=== PATIENT | male | born 1965 | race Caucasian/White ===

== ENCOUNTER 2018-09-23 09:47 | Outpatient (CLI) | payer BC, SELFPAY ==
[2018-09-23 11:53] LABS: TSH (W/Ref FT4) 1.43 uIU/mL (0.358-3.74)
== END 2018-09-23 10:07 ==
PROVIDERS: PCP Student in an Organized Health Care Education/Training Program; Visit Provider Student in an Organized Health Care Education/Training Program
DX: F32.9 Major depressive disorder, single episode, unspecified (principal); R41.840 Attention and concentration deficit; R53.83 Other fatigue
CPT/HCPCS: 36415; 84443

== ENCOUNTER 2019-10-03 09:09 | Outpatient (CLI) | payer BC, SELFPAY ==
[2019-10-03 09:53] LABS: HCT 40.7 % (40.0-50.0); HGB 14.4 g/dL (13.5-17.5); Mean Corp. HGB Concentration 35.4 g/dL (32.0-36.0); Mean Corpuscular Hemoglobin 36.6 pg (27.0-33.0); Mean Corpuscular Volume 103.6 fL (80-95); Platelet Count 160 x1000/uL (130-400); RBC 3.93 m/cumm (4.50-6.00); RBC Distribution Width 12.7 % (11.8-14.1); White Blood Cell Count 5.62 k/cumm (4.4-10.8)
[2019-10-03 10:57] LABS: ALT 60 U/L (16-63); AST 184 U/L (15-37); Albumin 3.4 g/dL (3.4-5.0); Alkaline Phosphatase 130 U/L (46-116); Anion Gap 9.7 mmol/L (3-11); BUN 7 mg/dL (7-18); Bilirubin, Total 1.1 mg/dL (0.2-1.0); CO2 29.3 mmol/L (21.0-32.0); Calcium 8.7 mg/dL (8.5-10.1); Calculated LDL 55 mg/dL (<100); Chloride 103 mmol/L (98-107); Cholesterol 184 mg/dL (<200); Glucose 85 mg/dL (74-106); HDL Cholesterol 109 mg/dL (40-60); Potassium 3.8 mmol/L (3.5-5.1); Sodium 142 mmol/L (136-145); Total Protein 6.1 g/dL (6.4-8.2); Triglyceride 102 mg/dL (<150)
== END 2019-10-03 09:29 ==
PROVIDERS: PCP Student in an Organized Health Care Education/Training Program; Visit Provider Student in an Organized Health Care Education/Training Program
DX: I10 Essential (primary) hypertension (principal); I71.4 Abdominal aortic aneurysm, without rupture; Z86.2 Personal history of diseases of the blood and blood-forming organs and certain disorders involving the immune mechanism; Z86.79 Personal history of other diseases of the circulatory system; Z87.19 Personal history of other diseases of the digestive system; Z13.220 Encounter for screening for lipoid disorders
CPT/HCPCS: 36415; 80053; 80061; 85027

== ENCOUNTER 2020-01-11 18:05 | Inpatient (IN) | payer BC, SELFPAY ==
[2020-01-11] VITALS (44 sets, daily range): BP systolic 115–151; BP diastolic 65–101; PULSE 88–128; RESP 11–25; TEMP 36.3; O2SAT 85–100
[2020-01-11 19:14] LABS: Abs Immature Grans 0.04 k/cumm (0.0-0.09); Absolute Basophil Count 0.03 k/cumm (0.0-0.2); Absolute Lymphocyte Count 1.83 k/cumm (1.2-3.4); Absolute Monocyte Count 0.59 k/cumm (0.11-0.7); Basophils % 0.3; HCT 40.6 % (40.0-50.0); HGB 13.5 g/dL (13.5-17.5); Immature Grans % 0.4 %; Lymphocytes % 19.9; Mean Corp. HGB Concentration 33.3 g/dL (32.0-36.0); Mean Corpuscular Hemoglobin 30.7 pg (27.0-33.0); Mean Corpuscular Volume 92.3 fL (80-95); Mean Platelet Volume 8.7 fL (8.0-11.0); Monocytes % 6.4; Platelet Count 127 x1000/uL (130-400); RBC Distribution Width 14.3 % (11.8-14.1); White Blood Cell Count 9.19 k/cumm (4.4-10.8)
[2020-01-11] MEDS: LORazepam 2 MG/ML VIAL ×2 (19:16→22:32)
[2020-01-11] MEDS: Ondansetron 4 MG/2 ML VIAL (19:16)
[2020-01-11 19:18] LABS: Lactate 6.4 mmol/L (0.6-1.4)
[2020-01-11 19:33] LABS: ALT 68 U/L (16-63); AST 229 U/L (15-37); Albumin 3.3 g/dL (3.4-5.0); Alkaline Phosphatase 207 U/L (46-116); Anion Gap 15.4 mmol/L (3-11); BUN 6 mg/dL (7-18); Bilirubin, Total 1.2 mg/dL (0.2-1.0); CO2 24.6 mmol/L (21.0-32.0); CREATININE 0.82 mg/dL (0.70-1.30); Calcium 8.5 mg/dL (8.5-10.1); Chloride 101 mmol/L (98-107); ETHANOL BLOOD 11.1 mg/dL (<3); Glucose 134 mg/dL (74-106); Potassium 4.2 mmol/L (3.5-5.1); Sodium 141 mmol/L (136-145); Total Protein 6.8 g/dL (6.4-8.2)
[2020-01-11] MEDS: THIAMINE 100 MG in Normal Saline 100 ML 200 MG IVPB (19:38)
--- NOTE | 2020-01-11 20:20 | DI.RAD_ITS ---
EXAM: XR PORTABLE CHEST AP CLINICAL HISTORY: fever TECHNIQUE: 2D digital imaging was performed. COMPARISON: CR RIGHT SHOULDER COMPLETE from 04/23/[address] CHEST/ABD/PEL W from 01/11/2020 FINDINGS: LUNGS: There is mild elevation of the left diaphragm and mild left basilar atelectasis. No pleural a bnormality seen. HEART: Normal size. Aortic valve replacement.. MEDIASTINUM: ectatic aorta. OTHER FINDINGS: None. IMPRESSION: Mild left basilar atelectasis versus scarring. No infiltrates.. DATA REPOSITORY: RADIATION DOSE DELIVERED:
--- NOTE | 2020-01-11 20:35 | DI.VRAD_ITS ---
PROCEDURE INFORMATION: Exam: XR Chest, 1 View Exam date and time: 01/11/2020 8:19 PM Age: 54 years old Clinical indication: Fever TECHNIQUE: Imaging protocol: XR of the chest Views: 1 view. COMPARISON: CR CHEST 2 VIEWS PA,LAT 03/17/2016 12:51 PM FINDINGS: Lungs: No focal consolidation. Pleural space: No pleural effusion. No pneumothorax. Heart/Mediastinum: Heart size is normal. There is a prosthetic heart valve. Aorta is mildly tortuous. Bones/joints: Sternotomy wires are seen. IMPRESSION: No acute cardiopulmonary disease. Dictated and Authenticated by: Fabien Coffman MD. Ordering:EVELINE Grewal MD
[2020-01-11] MEDS: Lactated Ringers 1,000 ML 1000 ML IV (20:49)
[2020-01-11] MEDS: LORazepam 2 MG/ML VIAL IVP ×2 (20:50→21:32)
[2020-01-11 21:22] LABS: Magnesium 1.6 mg/dL (1.8-2.4)
[2020-01-11 21:27] LABS: Bilirubin Small (Negative); Blood Trace-lysed (Negative); Clarity Clear (Clear); Glucose Negative (Negative); Ketones Trace mg/dL (Negative); Leukocyte Esterase Negative (Negative); Nitrite Negative (Negative); Specific Gravity >= 1.030 (1.005-1.025); Urobilinogen 0.2 EU/dL (Up TO 0.2); pH 5.5 (5-8)
[2020-01-11 21:41] LABS: Epithelial Cells Few HPF (Negative); RBC Negative HPF (0-2)
[2020-01-11 21:42] LABS: Bacteria Negative HPF (Negative); C & S Indicated? Yes; Casts 3-5 Hyaline LPF (Negative); Crystals Few Amorphous HPF (Negative); Mucus Moderate (Negative); Other Cells Mod Transitional (Negative)
[2020-01-11] MEDS: Lactated Ringers 1,000 ML 200 ML IV (22:21)
[2020-01-11 22:47] LABS: Lactate 1.6 mmol/L (0.6-1.4)
[2020-01-11] MEDS: Normal Saline Flush 10 ML SYR IVP (23:03)
[2020-01-11] MEDS: Normal Saline - Diluent 50 ML VIAL IV (23:08)
[2020-01-11] MEDS: Omnipaque 350 MG/ML 100 ML BTL IJ (23:08)
[2020-01-11 23:18] LABS: Procalcitonin 0.1 ng/mL
--- NOTE | 2020-01-11 23:20 | DI.CT_ITS ---
EXAM: CT CHEST/ABD/PEL W CLINICAL HISTORY: fever/sepsis no obvious source. TECHNIQUE: Imaging Protocol: Axial computed tomography images with coronal and sagittal reformatted images were created and reviewed CONTRAST MATERIAL: Intravenous: Omnipaque 350 Contrast volume:100 ml Oral: no COMPARISON: CT CTA THORAX/ABDOMEN W CONTRAS from 06/03/2016 FINDINGS: CHEST: Thyroid: Normal. Tracheobronchial tree: Patent where visualized. Mediastinum and Tata: No dominant adenopathy or fluid collection. Pulmonary parenchyma: Mild dependent changes and respiratory motion. No consolidation or dominant me asurable mass. . Pleura: No effusion or pneumothorax. Lymph nodes: Within normal limits. Aorta: An aortic valve prosthesis is again noted. There are surgical clips and previous repair of th e ascending aorta. 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 Both t rue and false lumen are opacified. There is a small amount of fluid around the descending aorta whic h has increased when compared with the previous exam. There has also been slight interval increase i n diameter of the descending aorta, now measuring 4 cm compared with 3.8 cm on the previous exam. Th e dissection extends into the left subclavian artery and brachiocephalic trunk. This was seen on the previous exam.. Heart: Mild left atrial and left ventricular enlargement. Bones: Mild degenerative disc changes. ABDOMEN: Liver: Moderate fatty infiltration.. No measurable mass. Gallbladder and biliary tract: No radiodense calculus or dilation. Pancreas: Normal density, no abnormal calcifications or inflammatory process. Spleen: Normal. Kidneys: Normal size, contour and axis. No radiodense stones or obstructive uropathy. No masses seen. Adrenal glands: Stable tiny nodules.. Aorta: Dissection of the abdominal aorta is again noted. There has been mild interval increase in di ameter of the abdominal aorta, now measuring 2.8 cm in diameter compared with 2.4 cm on the previous exam. The dissection ends at the bifurcation. Both true and false lumen are opacified. There is no evidence of leak. The branch vessels are patent.. Lymph nodes: Within normal limits. PELVIS: Bladder: Symmetric distention, no gross wall thickening. Bowel: Exam is mildly limited by patient motion. No obstruction or bowel wall thickening. Peritoneal cavity: No ascites, collection or mesenteric inflammatory response. Bones: Within normal limits. Reproductive organs: Within normal limits. IMPRESSION: Dissection of the aorta from the arch through the bifurcation without significant change in appearanc e. Mild interval increase in aortic diameter compared with 2016. A small amount of fluid versus mur al thrombus is now seen around the descending thoracic aorta. No source for fever or sepsis is identified. There is no evidence of bowel ischemia. RADIATION DOSE DELIVERED: 1,948.6mGy.cm Total DLP DATA REPOSITORY: All CT scans at this facility are submitted to the National Radiology Data Registry (NRDR) Dose Index Registry (DIR) with the [employer] (ACR). RADIATION OPTIMIZATION: All CT scans at this facility use at least one of these dose optimization te chniques: automated exposure control; mA and/or kV adjustment per patient size (includes targeted exa ms where dose is matched to clinical indication); or iterative reconstruction.
--- NOTE | 2020-01-11 23:40 | HPE_ITS ---
Date of service: 01/11/20 Time of Service: 23:41 Assessment and Plan Assessment and plan (1) Alcohol withdrawal: Status: Acute Assessment and plan: Continue with IV fluid hydration along with scheduled doses of benzodiazepines including Librium 50 mg p.o. 4 times daily for the next 48 to 72 hours along with PRN doses of Ativan and/or Valium. Continue with high-dose thiamine and folic acid and multivitamin. Qualifiers: Complication of substance-induced condition: uncomplicated Qualified Code(s): F10.230 - Alcohol dependence with withdrawal, uncomplicated (2) Hypertension: Status: Chronic Assessment and plan: Continue his home dose of metoprolol and clonidine. I do not agree with this combination of beta-kirby and alpha kirby together but he has been taking both routinely and the alpha-kirby should not be acutely withdrawn to the risk of inducing a hypertensive crisis. Qualifiers: Hypertension type: essential hypertension Qualified Code(s): I10 - Essential (primary) hypertension (3) Lactic acidosis: Status: Acute Assessment and plan: Lactic acidosis appears to be related to his acute alcoholism and seems to be resolving with IV fluid hydration. Although initially there was some concerns from the emergency department whether he could be having some sepsis given his subjective symptoms of fever (chills and sweating but no documented temperature increase) nevertheless with a normal WBC count and a normal procalcitonin level and a lactic acid level that is declining with IV fluid hydration I think sepsis is an unlikely cause. Nevertheless blood cultures were obtained through the emergency department however I am not going to start antibiotics at this point. (4) Hypomagnesemia: Status: Acute Assessment and plan: Hypomagnesemia due to chronic alcoholism. This is not been corrected yet Blanca given both IV and p.o. magnesium. We will recheck his levels in the morning. (5) Suicidal ideation: Status: Acute Assessment and plan: Patient admits to a history of depression anxiety and admits to occasional passing thoughts of suicide but denies any planned attempts. He says he could never go through with this as he would not want a hurt his daughter by harming himself. Nevertheless I think once he gets through the acute alcohol withdrawal he would benefit from a mental health evaluation prior to discharge. (6) Alcoholism, chronic: Status: Chronic Assessment and plan: Patient states his been through multiple inpatient treatment programs for his alcoholism most recently at [facility] about a month ago which he said was was not a good experience. Prior to this he had been in inpatient treatment programs in [place]. He most recently had followed up in but says he fell off the [facility] [place] during the half-way in place orders for COVID- 19. 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 Because of the protracted vomiting is been unable to drink any alcoholic beverages for last 2 days. Prior to this he had had about 2-week history of symptoms of confusion which he calls difficulty with collaborative planning. 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 Patient said malaise and fatigue for the last few weeks has had some confusion for the last couple weeks. He now presents emergency department and acute alcohol withdrawal with his tremulous along with tachycardia and hypertension and nausea and vomiting. Work-up in the emergency department showed a normal CBC with no leukocytosis and no anemia although he has thrombocytopenia of 127,000. CMP is remarkable for an increased anion gap of 15.4 with normal electrolytes and a normal BUN of 6 and creatinine 0.82 and an elevated blood lactate of 6.4 with elevated transaminases with an AST of 229, ALT 68, alkaline phosphatase 207 and a low magnesium of 1.6. After he was given a liter of saline and a liter lactated Ringer's his blood lactate level came down to 1.6. His procalcitonin level is normal at 0.1. Urine toxicology screen is pending at this time his blood alcohol level was 11.1. Urinalysis was remarkable for an increase specific gravity of greater than 1.030 with greater than 300 mg/dL protein. Otherwise was negative for nitrites and leukocyte esterase and bacteria. Chest x-ray showed no acute cardiopulmonary disease. CT of his chest abdomen pelvis was ordered by the ER department and is pending at this time. In addition to the liter of Ringer's lactate solution and normal saline he was given thiamine 100 mg IV push as well as 2 doses of lorazepam 2 mg IV per each dose. And given a dose of Librium 50 mg p.o. Patient will now be admitted to the intensive care unit for treatment of acute alcohol withdrawal and the possibility of a early Warnicke's encephalopathy. Review of Systems Constitutional Constitutional: Reports excessive sweating, Reports fatigue and Reports frequent falls Eyes Eyes: Reports system reviewed and no additional complaints, except as documented ENT Ears, Nose, Mouth, and Throat: Reports system reviewed and no additional complaints, except as documented and Reports dizziness Cardiovascular Cardiovascular: Denies chest pain, Reports diaphoresis and Denies dyspnea Respiratory Respiratory: Denies cough, Denies dyspnea and Denies wheezing Gastrointestinal Gastrointestinal: Denies abdominal pain, Reports nausea, Reports vomiting and Denies hematemesis Genitourinary Genitourinary: Reports system reviewed and no additional complaints, except as documented Musculoskeletal Musculoskeletal: Reports system reviewed and no additional complaints, except as documented Integumentary/Breasts Skin/Breast: Reports system reviewed and no additional complaints, except as documented Neurologic Neurologic: Reports confusion, Reports dizziness and Reports frequent falls Psychiatric Psychiatric: Reports anxiety, Reports confusion, Reports irritability, Denies visual hallucinations, Denies hallucinations, Denies tactile hallucinations and Reports suicidal ideation (he admits to having had thoughts of suicide but with no real plan) Endocrine Endocrine: Reports excessive sweating and Reports fatigue Hematologic/Lymphatic Hematologic/Lymphatic: Reports system reviewed and no additional complaints, except as documented Allergic/Immunologic Allergic/Immunologic: Reports system reviewed and no additional complaints, except as documented and Denies wheezing [facility] Medical History (Updated 01/12/20 @ 01:36 by Mayur Hawk) Abdominal aortic aneurysm (Acute) Alcoholism (Acute) Hypertension (Chronic) Prolonged QT interval (Acute) Right bundle branch block (Acute) Right shoulder pain (Acute) Tick-borne disease (Acute) Surgical History (Updated 01/12/20 @ 01:28 by Mayur Hawk) H/O hand surgery (Acute) Left, Ring Finger Tendon Injury Repair S/P aortic dissection repair (Acute) with bovine aortic valve replacement Social History Smoking/Tobacco Use Status: Former Tobacco Use Smokeless tobacco user: chewing tobacco Alcohol Intake: current Alcohol Intake frequency: 3 or more drinks per day Drug use: Occasionally Substance use type: does not use and marijuana Household members: children Housing: house Number of Children: 2 Communication Needs: Corrective Lenses current occupation: Teacher Pets and animals: No What type of physical activity do you participate in: none Duration: 15-30 minutes/day Frequency: 5-6 times per week Seatbelt use: always Drive intox or ride w/intox bulk tank driver: No Working smoke detector in home: Yes Do you feel safe at home: Yes Do you feel safe in your relationship?: Yes Meds Home Medications and Allergies Home Medications Medication Instructions Recorded Confirmed Type ibuprofen 2 tab PO PRN PRN 03/17/16 01/11/20 History metoprolol tartrate 25 mg PO TID 06/03/16 01/11/20 History aspirin 81 mg tablet,delayed 81 mg PO DAILY 06/01/18 01/11/20 History release thiamine HCl (vitamin B1) 100 mg 100 mg PO DAILY 06/07/19 01/11/20 History tablet rosuvastatin 10 mg tablet 10 mg PO DAILY #90 tab 06/08/19 01/11/20 Rx clonidine HCl 0.1 mg tablet 0.1 mg PO TID #90 tab 10/22/19 01/11/20 Rx hydroxyzine HCl 50 mg tablet 50 mg PO TID PRN 11/17/19 01/11/20 History melatonin 10 mg tablet 10 mg PO HS 11/17/19 01/11/20 History magic mouth wash PO 12/01/19 01/07/20 History acetylcysteine 600 mg capsule 600 mg PO QID cap 12/08/19 01/11/20 History Allergies Allergy/AdvReac Type Severity Reaction Status Date / Time buspirone [From BuSpar] AdvReac swollen Verified 01/11/20 18:27 ankles fluoxetine AdvReac ineffective Verified 01/11/20 18:27 trazodone AdvReac nightmares Verified 01/11/20 18:27 Exam Narrative Exam Narrative: Middle-age male lying in [facility] in no acute distress he is alert and oriented person place time circumstances. Not hallucinating. HEENT is remarkable for dry mucous membranes Neck is supple nontender no JVD normal carotid pulse no bruits Lungs are clear to auscultation Heart is regular rate and rhythm with a very faint systolic murmur over the aortic outflow tract no thrill heave or gallop. Abdomen is obese soft and nontender normal active bowel sounds no palpable masses no bruits. Lower extremities he has some bruising over the right bobo and an abrasion over the right bobo without erythema. No peripheral cyanosis or edema. No calf tenderness. Neurologic exam he is alert and oriented person place time circumstance speech is clear and coherent without dysarthria. No facial asymmetry. Flextra motions intact. No focal motor deficits. No focal sensory deficits. He does have some tremulousness in his hands. No asterixis. Results Labs Result diagrams: 01/11/20 19:02 01/11/20 19:02 Labs: Laboratory Results - last 24 hr 01/11/20 01/11/20 01/11/20 19:02 19:02 19:02 WBC 9.19 RBC 4.40 L Hgb 13.5 Hct 40.6 MCV 92.3 MCH 30.7 MCHC 33.3 RDW 14.3 H Plt Count 127 L MPV 8.7 Immature Gran % 0.4 Neutrophils % 73.0 Lymphocytes % 19.9 Monocytes % 6.4 Eosinophils % 0.0 Basophils % 0.3 Absolute Neutrophils 6.70 Absolute Lymphocytes 1.83 Absolute Monocytes 0.59 Absolute Eosinophils 0.00 Absolute Basophils 0.03 Sodium 141 Potassium 4.2 Chloride 101 Carbon Dioxide 24.6 Anion Gap 15.4 H BUN 6 L Creatinine 0.82 Estimated GFR/1.73 m2 >= 60.00 Glucose 134 H Lactate 6.4 H* Calcium 8.5 Magnesium Total Bilirubin 1.2 H AST 229 H ALT 68 H Alkaline Phosphatase 207 H Total Protein 6.8 Albumin 3.3 L Procalcitonin Urine Color Urine Clarity Urine pH Ur Specific [place] Urine Protein Urine Ketones Urine Blood Urine Nitrite Urine Bilirubin Urine Urobilinogen Ur Leukocyte Esterase Urine RBC Urine WBC Ur Epithelial Cells Urine Crystals Urine Bacteria Urine Casts Urine Mucus Urine Other Ur Culture Indicated? Urine Glucose Ethyl Alcohol 11.1 01/11/20 01/11/20 01/11/20 19:50 21:17 22:30 WBC RBC Hgb Hct MCV MCH MCHC RDW Plt Count MPV Immature Gran % Neutrophils % Lymphocytes % Monocytes % Eosinophils % Basophils % Absolute Neutrophils Absolute Lymphocytes Absolute Monocytes Absolute Eosinophils Absolute Basophils Sodium Potassium Chloride Carbon Dioxide Anion Gap BUN Creatinine Estimated GFR/1.73 m2 Glucose Lactate 1.6 H Calcium Magnesium 1.6 L Total Bilirubin AST ALT Alkaline Phosphatase Total Protein Albumin Procalcitonin Urine Color Shi Urine Clarity Clear Urine pH 5.5 Ur Specific [place] >= 1.030 H Urine Protein >=300 H Urine Ketones Trace H Urine Blood Trace-lysed H Urine Nitrite Negative Urine Bilirubin Small H Urine Urobilinogen 0.2 Ur Leukocyte Esterase Negative Urine RBC Negative Urine WBC 5-10 Ur Epithelial Cells Few Urine Crystals Few amorphous Urine Bacteria Negative Urine Casts 3-5 hyaline Urine Mucus Moderate Urine Other Mod transitional Ur Culture Indicated? Yes Urine Glucose Negative Ethyl Alcohol 01/11/20 22:30 WBC RBC Hgb Hct MCV MCH MCHC RDW Plt Count MPV Immature Gran % Neutrophils % Lymphocytes % Monocytes % Eosinophils % Basophils % Absolute Neutrophils Absolute Lymphocytes Absolute Monocytes Absolute Eosinophils Absolute Basophils Sodium Potassium Chloride Carbon Dioxide Anion Gap BUN Creatinine Estimated GFR/1.73 m2 Glucose Lactate Calcium Magnesium Total Bilirubin AST ALT Alkaline Phosphatase Total Protein Albumin Procalcitonin 0.1 Urine Color Urine Clarity Urine pH Ur Specific [place] Urine Protein Urine Ketones Urine Blood Urine Nitrite Urine Bilirubin Urine Urobilinogen Ur Leukocyte Esterase Urine RBC Urine WBC Ur Epithelial Cells Urine Crystals Urine Bacteria Urine Casts Urine Mucus Urine Other Ur Culture Indicated? Urine Glucose Ethyl Alcohol Last Vital Signs Temp 36.3 C L 01/11/20 18:23 Pulse 111 H 01/11/20 19:31 Resp 18 01/11/20 20:20 BP 127/81 01/11/20 19:01 Pulse Ox 95 01/11/20 20:20 COVID-19 Screening In the past 14 days, have you traveled outside of [place] or [place]?: NO Had IN PERSON contact w/suspected or confirmed C-19 person: No
[2020-01-11] MEDS: chlordiazePOXIDE 25 MG CAP 50 MG PO (23:50)
--- NOTE | 2020-01-11 23:51 | W.ED.GENAD ---
Discharge Plan Discharge Details Chief Complaint: Fever Primary Care Provider: Jessi Goodwin ED Provider: Carmina Huff Home Meds and New Rx's Prescriptions: No Action clonidine HCl 0.1 mg tablet 0.1 mg PO TID Qty: 90 RF: 3 aspirin 81 mg tablet,delayed release (DR/EC) 81 mg PO DAILY RF: 0 thiamine HCl (vitamin B1) 100 mg tablet 100 mg PO DAILY RF: 0 rosuvastatin 10 mg tablet 10 mg PO DAILY Qty: 90 RF: 2 hydroxyzine HCl 50 mg tablet 50 mg PO TID PRNRF: 0 melatonin 10 mg tablet 10 mg PO HS RF: 0 magic mouth wash mouthwash PO RF: 0 acetylcysteine [NAC] 600 mg capsule 600 mg PO QID RF: 0 ibuprofen 200 MG capsule 2 tab PO PRN PRNRF: 0 metoprolol tartrate 25 MG tablet 25 mg PO TID RF: 0 Medical Decision Making <ELISA Aguilar - Last Filed: 01/12/20 00:45> Is a 54-year-old patient presenting the emergency room for complaints of nausea vomiting and febrile sensation for the last 2 days. Patient reports he is a chronic alcoholic and has been unable to drink for the last 2 days. Patient reports he is now in acute alcohol withdrawal. Patient feeling extremely tremulous. Patient reports the symptoms were preceded by 2 weeks of what was described as confusion. Please see HPI for specific details of his history. On initial evaluation the patient is notably hypertensive, tachycardic. Patient is maintaining oxygen saturations. Patient's initial temperature 36.3. IV access obtained. Immediate plan for fluids, Ativan, nausea medication. Plan to obtain baseline labs, initiate fever work-up as well as acutely manage alcohol withdrawal symptoms. Of note patient has a benign neurologic exam is alert and oriented x3 and is mentating without difficulty. Patient is obviously tremulous. Patient has clear breath sounds, benign abdominal exam. We will also plan to provide thiamine for the possibility of Warneke's encephalitis. Patient has no complaints of headache or dizziness at this time. Labs reveal a lactate of 6.9. Additional IV and fluids were ordered. Differential diagnosis includes sepsis, Wernicke's encephalitis, alcohol withdrawal. 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 For this reason patient will receive [address] Julio Diehl also evaluated this patient, recommend a third blood culture. Despite patient's hydration has been unable to produce urinalysis therefore straight cath to obtain urinalysis for possible source of fever. Patient has no significant leukocytosis. Patient's labs reviewed. Mild LFT elevation, mild elevation of bilirubin. This trend is been noted recently although is somewhat worse. Patient's renal function notably maintained. Patient remains significantly tremulous. Additional Ativan provided. We will plan to give 2 mg of Ativan IV every 30 minutes until patient's withdrawal symptoms begin to improve Urinalysis unremarkable for identified infection. Patient's lactate improved to 1.6 Patient's chest x-ray reveals no acute cardiopulmonary disease. Given lack of identifiable infection on urinalysis or chest x-ray will plan to obtain CT chest abdomen and pelvis at Dr. Diehl's recommendation. Patient's tremors have significantly improved, resting more comfortably at the bedside. Given patient's Ativan dosing necessary for withdrawal management will plan to page hospitalist for admission for likely ICU placement. Spoke with Dr. William who agrees with plan of care and admission to ICU. He will place orders. We will obtain Covid testing in the emergency room. <Julio Diehl MD - Last Filed: 01/12/20 00:19> Patient was seen and evaluated by me. Patient primarily cared for by ELISA Huff. Case discussed and reviewed with me extensively. Agree with note and plan as written. Patient with severe alcohol withdrawal and fever. Will require ICU admission. Lab Data Lab results reviewed: Yes I reviewed the patient's lab results. HPI <ELISA Aguilar - Last Filed: 01/12/20 00:45> General Date/Time Provider Initiated Documentation: 01/11/20 18:54. HPI Narrative: This is a 54-year-old patient presenting to the emergency room for complaints of fever for the last 2 days. Patient reports he had onset of nausea and vomiting 2 days ago. Patient reports he is an alcoholic. Drinks daily for several years. Patient reports he has been unable to drink for the last 2 days and now is experiencing withdrawal symptoms. Patient specifically reports feeling extremely tremulous. Patient reports mild nasal congestion. Denies sore throat. Denies cough, chest pain, difficulty breathing shortness of breath or wheezing. Denies abdominal pain. Denies obvious bowel changes specifically no diarrhea. Patient denies dysuria, urgency or frequency. Patient does report he had labs ordered by PCP as he was reporting some confusion over the last 2 weeks. 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 Patient denies any focal weakness, has been able to ambulate without difficulty. Patient reports fatigue and mild malaise for the last few weeks. Patient does report he was due to have labs which she has not yet had drawn. Patient denies any obvious symptoms outside of nausea and vomiting associated with fever. Denies any rashes. Denies any lower leg swelling. Related Data Home Medications Medication Instructions Recorded Confirmed ibuprofen 2 tab PO PRN PRN 03/17/16 01/11/20 metoprolol tartrate 25 mg PO TID 06/03/16 01/11/20 aspirin 81 mg tablet,delayed 81 mg PO DAILY 06/01/18 01/11/20 release thiamine HCl (vitamin B1) 100 mg 100 mg PO DAILY 06/07/19 01/11/20 tablet rosuvastatin 10 mg tablet 10 mg PO DAILY #90 tab 06/08/19 01/11/20 clonidine HCl 0.1 mg tablet 0.1 mg PO TID #90 tab 10/22/19 01/11/20 hydroxyzine HCl 50 mg tablet 50 mg PO TID PRN 11/17/19 01/11/20 melatonin 10 mg tablet 10 mg PO HS 11/17/19 01/11/20 magic mouth wash PO 12/01/19 01/07/20 acetylcysteine 600 mg capsule 600 mg PO QID cap 12/08/19 01/11/20 Previous Rx's Medication Instructions Recorded rosuvastatin 10 mg tablet 10 mg PO DAILY #90 tab 06/08/19 clonidine HCl 0.1 mg tablet 0.1 mg PO TID #90 tab 10/22/19 Allergies Allergy/AdvReac Type Severity Reaction Status Date / Time buspirone [From BuSpar] AdvReac swollen Verified 01/11/20 18:27 ankles fluoxetine AdvReac ineffective Verified 01/11/20 18:27 trazodone AdvReac nightmares Verified 01/11/20 18:27 General Stated Complaint: Fever CATALINO: 3 Review of Systems <ELISA Aguilar - Last Filed: 01/12/20 00:45> All systems reviewed & are unremarkable except as noted in HPI and below PFSH <ELISA Aguilar - Last Filed: 01/12/20 00:45> Medical History Abdominal aortic aneurysm (Acute) Alcoholism (Acute) Hypertension (Chronic) Prolonged QT interval (Acute) Right bundle branch block (Acute) Right shoulder pain (Acute) Tick-borne disease (Acute) Social History Smoking/Tobacco Use Status: Former Tobacco Use Smokeless tobacco user: chewing tobacco Alcohol Intake: current Alcohol Intake frequency: 3 or more drinks per day Drug use: Occasionally Substance use type: does not use and marijuana Household members: children Housing: house Number of Children: 2 Communication Needs: Corrective Lenses current occupation: Teacher Pets and animals: No What type of physical activity do you participate in: none Duration: 15-30 minutes/day Frequency: 5-6 times per week Seatbelt use: always Drive intox or ride w/intox 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 Alert and oriented x3. HENMT: Head nomocephalic, normal to inspection. Atraumatic. Hearing grossly normal. External ear canal no erythema or swelling. EYES: General normal appearance. Alignment normal. Eyelids normal. Conjunctiva normal. Sclera normal. PERRL. NECK: Normal visual inspection. FROM. No lymphadenopathy. Trachea midline. No Midline tenderness. CHEST: Normal insepection of the chest. RESP: Normal respiratory effort. Speaking full sentences. No cough. No wheezing. No retractions. Clear to auscaltation. Breath sound equal and present bilaterally. CARDIO: No JVD. Normal PMI. Regular Rate. Regular Rhythm. Normal peripheral pulses. GI: Normal inspection of abdomen. No distension. Soft. Nontender. Bowel sounds present in all 4 quadrants. No rebound. No gaurding. MUSCULOSKELETAL: Normal Gait. FROM of all extremities. Distal neurovascularly intact. Sensation intact distally. SKIN: Normal. Dry. No rashes. NEURO: Alert and awake. Speech clear. PSYCH: Normal affect. Cooperative. Course <ELISA Aguilar - Last Filed: 01/12/20 00:45> Vital Signs Vital signs: Vital Signs Temperature 36.3 C L 01/11/20 18:23 Pulse 101 H 01/11/20 18:23 Blood Pressure 148/101 H 01/11/20 18:23 Pulse Oximetry 95 01/11/20 18:23 Temperature 36.3 C L 01/11/20 18:23 Pulse 111 H 01/11/20 19:31 Pulse 99 H 01/11/20 20:20 Respiratory Rate 18 01/11/20 20:20 Respiratory Effort Non-Labored 01/11/20 18:30 Respiratory Pattern Normal 01/11/20 23:23 Blood Pressure 127/81 01/11/20 19:01 Blood Pressure Mean 120 01/11/20 19:31 Blood Pressure Position Sitting 01/11/20 18:23 Pulse Oximetry 95 01/11/20 20:20 Oxygen Delivery Method Room Air 01/11/20 18:23 Oxygen Flow Rate 0 01/11/20 18:23 Pain Level 8 01/11/20 18:23 Lab/Test Results Lab/Test Results: 01/11/20 22:30 Blood Blood Culture - Pending 01/11/20 21:17 Urine - Reflex from Ua Urine Culture - Pending 01/11/20 19:50 Blood Blood Culture - Pending 01/11/20 19:02 Blood Blood Culture - Pending Laboratory Tests Range/Units 01/11/20 01/11/20 01/11/20 19:02 19:02 19:02 WBC (4.4-10.8) k/cumm 9.19 RBC (4.50-6.00) m/cumm 4.40 L Hgb (13.5-17.5) g/dL 13.5 Hct (40.0-50.0) % 40.6 MCV (80-95) fL 92.3 MCH (27.0-33.0) pg 30.7 MCHC (32.0-36.0) g/dL 33.3 RDW (11.8-14.1) % 14.3 H Plt Count (130-400) x1000/uL 127 L MPV (8.0-11.0) fL 8.7 Immature Gran % % 0.4 Neutrophils % 73.0 Lymphocytes % 19.9 Monocytes % 6.4 Eosinophils % 0.0 Basophils % 0.3 Absolute Neutrophils (1.2-6.7) k/cumm 6.70 Absolute Lymphocytes (1.2-3.4) k/cumm 1.83 Absolute Monocytes (0.11-0.7) k/cumm 0.59 Absolute Eosinophils (0.0-0.7) k/cumm 0.00 Absolute Basophils (0.0-0.2) k/cumm 0.03 Sodium (136-145) mmol/L 141 Potassium (3.5-5.1) mmol/L 4.2 Chloride (98-107) mmol/L 101 Carbon Dioxide (21.0-32.0) mmol/L 24.6 Anion Gap (3-11) mmol/L 15.4 H BUN (7-18) mg/dL 6 L Creatinine (0.70-1.30) mg/dL 0.82 Estimated GFR/1.73 m2 (mL/min/1.73m2) >= 60.00 Glucose (74-106) mg/dL 134 H Lactate (0.6-1.4) mmol/L 6.4 H* Calcium (8.5-10.1) mg/dL 8.5 Magnesium (1.8-2.4) mg/dL Total Bilirubin (0.2-1.0) mg/dL 1.2 H AST (15-37) U/L 229 H ALT (16-63) U/L 68 H Alkaline Phosphatase (46-116) U/L 207 H Total Protein (6.4-8.2) g/dL 6.8 Albumin (3.4-5.0) g/dL 3.3 L Procalcitonin ng/mL Urine Color (Yellow) Urine Clarity (Clear) Urine pH (5-8) Ur Specific [place] (1.005-1.025) Urine Protein (Negative) mg/dL Urine Ketones (Negative) mg/dL Urine Blood (Negative) Urine Nitrite (Negative) Urine Bilirubin (Negative) Urine Urobilinogen (Up TO 0.2) EU/dL Ur Leukocyte Esterase (Negative) Urine RBC (0-2) HPF Urine WBC (0-5) HPF Ur Epithelial Cells (Negative) HPF Urine Crystals (Negative) HPF Urine Bacteria (Negative) HPF Urine Casts (Negative) LPF Urine Mucus (Negative) Urine Other (Negative) Ur Culture Indicated? Urine Glucose (Negative) mg/dL Ethyl Alcohol (<3) mg/dL 11.1 Range/Units 01/11/20 01/11/20 01/11/20 19:50 21:17 22:30 WBC (4.4-10.8) k/cumm RBC (4.50-6.00) m/cumm Hgb (13.5-17.5) g/dL Hct (40.0-50.0) % MCV (80-95) fL MCH (27.0-33.0) pg MCHC (32.0-36.0) g/dL RDW (11.8-14.1) % Plt Count (130-400) x1000/uL MPV (8.0-11.0) fL Immature Gran % % Neutrophils % Lymphocytes % Monocytes % Eosinophils % Basophils % Absolute Neutrophils (1.2-6.7) k/cumm Absolute Lymphocytes (1.2-3.4) k/cumm Absolute Monocytes (0.11-0.7) k/cumm Absolute Eosinophils (0.0-0.7) k/cumm Absolute Basophils (0.0-0.2) k/cumm Sodium (136-145) mmol/L Potassium (3.5-5.1) mmol/L Chloride (98-107) mmol/L Carbon Dioxide (21.0-32.0) mmol/L Anion Gap (3-11) mmol/L BUN (7-18) mg/dL Creatinine (0.70-1.30) mg/dL Estimated GFR/1.73 m2 (mL/min/1.73m2) Glucose (74-106) mg/dL Lactate (0.6-1.4) mmol/L 1.6 H Calcium (8.5-10.1) mg/dL Magnesium (1.8-2.4) mg/dL 1.6 L Total Bilirubin (0.2-1.0) mg/dL AST (15-37) U/L ALT (16-63) U/L Alkaline Phosphatase (46-116) U/L Total Protein (6.4-8.2) g/dL Albumin (3.4-5.0) g/dL Procalcitonin ng/mL Urine Color (Yellow) Shi Urine Clarity (Clear) Clear Urine pH (5-8) 5.5 Ur Specific [place] (1.005-1.025) >= 1.030 H Urine Protein (Negative) mg/dL >=300 H Urine Ketones (Negative) mg/dL Trace H Urine Blood (Negative) Trace-lysed H Urine Nitrite (Negative) Negative Urine Bilirubin (Negative) Small H Urine Urobilinogen (Up TO 0.2) EU/dL 0.2 Ur Leukocyte Esterase (Negative) Negative Urine RBC (0-2) HPF Negative Urine WBC (0-5) HPF 5-10 Ur Epithelial Cells (Negative) HPF Few Urine Crystals (Negative) HPF Few amorphous Urine Bacteria (Negative) HPF Negative Urine Casts (Negative) LPF 3-5 hyaline Urine Mucus (Negative) Moderate Urine Other (Negative) Mod transitional Ur Culture Indicated? Yes Urine Glucose (Negative) mg/dL Negative Ethyl Alcohol (<3) mg/dL Range/Units 01/11/20 22:30 WBC (4.4-10.8) k/cumm RBC (4.50-6.00) m/cumm Hgb (13.5-17.5) g/dL Hct (40.0-50.0) % MCV (80-95) fL MCH (27.0-33.0) pg MCHC (32.0-36.0) g/dL RDW (11.8-14.1) % Plt Count (130-400) x1000/uL MPV (8.0-11.0) fL Immature Gran % % Neutrophils % Lymphocytes % Monocytes % Eosinophils % Basophils % Absolute Neutrophils (1.2-6.7) k/cumm Absolute Lymphocytes (1.2-3.4) k/cumm Absolute Monocytes (0.11-0.7) k/cumm Absolute Eosinophils (0.0-0.7) k/cumm Absolute Basophils (0.0-0.2) k/cumm Sodium (136-145) mmol/L Potassium (3.5-5.1) mmol/L Chloride (98-107) mmol/L Carbon Dioxide (21.0-32.0) mmol/L Anion Gap (3-11) mmol/L BUN (7-18) mg/dL Creatinine (0.70-1.30) mg/dL Estimated GFR/1.73 m2 (mL/min/1.73m2) Glucose (74-106) mg/dL Lactate (0.6-1.4) mmol/L Calcium (8.5-10.1) mg/dL Magnesium (1.8-2.4) mg/dL Total Bilirubin (0.2-1.0) mg/dL AST (15-37) U/L ALT (16-63) U/L Alkaline Phosphatase (46-116) U/L Total Protein (6.4-8.2) g/dL Albumin (3.4-5.0) g/dL Procalcitonin ng/mL 0.1 Urine Color (Yellow) Urine Clarity (Clear) Urine pH (5-8) Ur Specific [place] (1.005-1.025) Urine Protein (Negative) mg/dL Urine Ketones (Negative) mg/dL Urine Blood (Negative) Urine Nitrite (Negative) Urine Bilirubin (Negative) Urine Urobilinogen (Up TO 0.2) EU/dL Ur Leukocyte Esterase (Negative) Urine RBC (0-2) HPF Urine WBC (0-5) HPF Ur Epithelial Cells (Negative) HPF Urine Crystals (Negative) HPF Urine Bacteria (Negative) HPF Urine Casts (Negative) LPF Urine Mucus (Negative) Urine Other (Negative) Ur Culture Indicated? Urine Glucose (Negative) mg/dL Ethyl Alcohol (<3) mg/dL Critical Care Time <ELISA Aguilar - Last Filed: 01/12/20 00:45> Critical Care Time Critical Care Time: Yes Total Critical Care Time: 40 Attestation: Greater than 35 minutes was spent managing patient's immediate risk of decompensation. This includes evaluating patient at the bedside, ordering medication, managing diagnostics and reviewing results.
[2020-01-12] VITALS (99 sets, daily range): BP systolic 97–147; BP diastolic 51–93; PULSE 79–109; RESP 11–24; TEMP 36.3–36.7; O2SAT 87–98
[2020-01-12 00:27] LABS: *AMPHETAMINES SCREEN URINE Negative (Negative); *BARBITURATES SCREEN URINE Negative (Negative); *BENZODIAZEPINES SCREEN URINE Negative (Negative); Cannabinoids THC POSITIVE (Negative); Cocaine Screen,Urine Negative (Negative); METHADONE URINE SCREEN Negative (Negative); OPIATES URINE SCREEN Negative (Negative)
[2020-01-12 00:58] LABS: Tricyclic Antidepressants Negative (Negative)
[2020-01-12 01:15] LABS: Lipase 101 U/L (73-393)
--- NOTE | 2020-01-12 01:24 | DI.VRAD_ITS ---
Addendum created by Fabien Coffman MD on 01/12/2020 1:27:58 AM EDT THIS REPORT CONTAINS FINDINGS THAT MAY BE CRITICAL TO PATIENT CARE. The findings were verbally communicated via telephone conference with ALAN AGUAYO at 1:27 AM EDT on 01/12/2020. The findings were acknowledged and understood. Initial report created on 01/12/2020 1:24:09 AM EDT PROCEDURE INFORMATION: Exam: CT Chest With Contrast Exam date and time: 01/11/2020 11:19 PM Age: 54 years old Clinical indication: Other: Fever/sepsis TECHNIQUE: Imaging protocol: Computed tomography of the chest with intravenous contrast. Radiation optimization: All CT scans at this facility use at least one of these dose optimization techniques: automated exposure control; mA and/or kV adjustment per patient size (includes targeted exams where dose is matched to clinical indication); or iterative reconstruction. Contrast material: [id number]; Contrast volume: 100 ml; Contrast route: IV LT HAND 20G; COMPARISON: No relevant prior studies available. FINDINGS: Lungs: No focal consolidation. Mild bibasilar atelectasis. Pleural space: No pleural effusion. No pneumothorax. Heart: The heart is enlarged. There is a prosthetic aortic valve. No pericardial effusion. Aorta: Mild dilation of the aortic root is seen. There is a type A aortic dissection arising from the aortic arch. Dissection flap extends into the left subclavian artery and brachiocephalic trunk. The appearance is similar to the prior study. The true and false lumen are opacified. There are postsurgical changes in the ascending aorta. There is mild diffuse ectasia of the thoracic aorta. Proximal descending aorta measures approximately 4.0 cm on the current study and 3.8 cm on the prior study. A tiny amount of fluid is seen adjacent to the proximal descending aorta. A tiny amount of fluid is seen adjacent to the proximal descending aorta. Great vessels off aortic arch: There is aneurysmal dilation of the left subclavian vein origin which is slightly larger measuring 2.3 cm on the current study and 2.1 cm on the prior study. Lymph nodes: No pathologically enlarged lymph nodes. Bones/joints: Unremarkable. No acute fracture. Soft tissues: Unremarkable. Other findings: There is respiratory motion artifact. IMPRESSION: 1. Stable appearance of type A aortic dissection. There is mild diffuse increase in size of the thoracic aorta compared with prior study. A tiny amount fluid is seen adjacent to the proximal descending aorta of unclear etiology. Superimposed infection or leakage is not excluded. 2. 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 3. No other acute abnormality identified. 4. Additional incidental/non-emergent findings, as above. PROCEDURE INFORMATION: Exam: CT Abdomen And Pelvis With Contrast Exam date and time: 01/11/2020 11:19 PM Age: 54 years old Clinical indication: Other: Fever/sepsis TECHNIQUE: Imaging protocol: Computed tomography of the abdomen and pelvis with intravenous contrast. Radiation optimization: All CT scans at this facility use at least one of these dose optimization techniques: automated exposure control; mA and/or kV adjustment per patient size (includes targeted exams where dose is matched to clinical indication); or iterative reconstruction. Contrast material: [id number]; Contrast volume: 100 ml; Contrast route: IV LT HAND 20G; COMPARISON: No relevant prior studies available. FINDINGS: Liver: There is fatty infiltration of the liver. Gallbladder and bile ducts: Unremarkable. No biliary dilation. The gallbladder is distended. Pancreas: Unremarkable. Spleen: Unremarkable. Adrenals: Stable subcentimeter bilateral adrenal nodules. Kidneys and ureters: Unremarkable. No hydronephrosis. Stomach and bowel: No bowel obstruction. There are a few scattered colonic diverticuli. No evidence of acute diverticulitis. Appendix: No evidence of appendicitis. Intraperitoneal space: No free air. No significant fluid collection. Vasculature: There is an aortic dissection extending down to the bifurcation, similar to prior. There is mild diffuse increase in size of the abdominal aorta without a focal aneurysm. Infrarenal aorta measures up to 2.8 cm on the current study and 2.4 cm on the prior study same location. The true and false lumen are opacified. Lymph nodes: No pathologically enlarged lymph nodes. Bladder: Unremarkable as visualized. Reproductive: Unremarkable as visualized. Bones/joints: No acute fracture. No destructive bone lesion. Soft tissues: Unremarkable. Other findings: There is motion artifact. IMPRESSION: 1. Stable appearance of abdominal aortic dissection. There is mild diffuse increase in size of the aorta compared to prior. 2. No other acute abnormality identified. 3. Additional incidental/non-emergent findings, as above. Dictated and Authenticated by: Fabien Coffman MD. Ordering:JUAN Kim MD
[2020-01-12] MEDS: Enoxaparin 60 MG/0.6 ML SYR SC (01:56)
[2020-01-12] MEDS: Enoxaparin 40 MG/0.4 ML SYR SC (01:57)
[2020-01-12] MEDS: MAGNESIUM SULFATE 4 GM/100 ML BAG 50 GM (02:07)
[2020-01-12] MEDS: DEXTROSE 5%-0.45% SALINE 1,000 ML 150 ML IV ×2 (04:54→13:06)
[2020-01-12] MEDS: LORazepam 1 MG TAB PO/SL ×2 (04:54→20:59)
[2020-01-12] MEDS: THIAMINE 500 MG in Normal Saline 100 ML 200 MG IVPB ×3 (06:24→22:53)
[2020-01-12] MEDS: chlordiazePOXIDE 25 MG CAP 50 MG PO ×3 (07:41→15:38)
[2020-01-12] MEDS: Magnesium Oxide 400 MG TAB PO ×2 (07:41→20:00)
[2020-01-12] MEDS: Metoprolol 25 MG TAB PO ×3 (07:41→20:00)
[2020-01-12] MEDS: Multivitamin TAB 1 TAB PO (07:42)
[2020-01-12] MEDS: Rosuvastatin 10 MG TAB PO (07:42)
[2020-01-12] MEDS: Normal Saline Flush 10 ML SYR IVP (07:42)
[2020-01-12] MEDS: cloNIDine 0.1 MG TAB PO ×3 (07:42→20:00)
[2020-01-12] MEDS: Folic Acid 1 MG TAB PO (07:42)
--- NOTE | 2020-01-12 08:03 | PDOC.CMIN ---
- If Service Date Differs Date of service: 01/12/20 Time of Service: 08:03 Care Management Initial Assess REASON FOR HOSPITALIZATION:: Alcohol withdrawal PAST MEDICAL HISTORY/PAST SURGICAL HISTORY:: Medical History (Updated 01/12/20 @ 01:36 by Mayur Hawk). Abdominal aortic aneurysm (Acute). Alcoholism (Acute). Hypertension (Chronic). Prolonged QT interval (Acute). Right bundle branch block (Acute). Right shoulder pain (Acute). Tick-borne disease (Acute). Surgical History (Updated 01/12/20 @ 01:28 by Mayur Hawk). H/O hand surgery (Acute). Left, Ring Finger Tendon Injury Repair. S/P aortic dissection repair (Acute). with bovine aortic valve replacement PREVIOUS FUNCTIONAL STATUS/SOCIAL/FAMILY SUPPORTS:: Gilmer lives in [place], [place] and is employed as a accounts receivable specialist. He is independent at baseline. CURRENT FUNCTIONAL STATUS:: CM unable to meet with Gilmer as he is isolated as a PUI. ADVANCE DIRECTIVES:: None on file Has patient been provided with information about the portal?: No Did the patient sign up for the portal?: No CODE STATUS:: Full Code INSURANCE COVERAGE / FINANCIAL ISSUES:: [employer] [facility] PRIMARY CARE PHYSICIAN:: Jessi Goodwin POTENTIAL DISCHARGE NEEDS:: Substance abuse treatment, follow up with PCP and idscharge plan PATIENT/FAMILY EDUCATION NEEDS:: Discharge plan, limitations, follow up plan, Ask Me Three TRANSPORTATION:: private vehicle with friends/family PLAN:: Gilmer will likely be discharged home with no new services.He would likely benefit from substance abuse treatment. Gilmer will follow up with his PCP and discharge plan of care. CM will continue to support patient, family and discharge planning needs.
[2020-01-12 08:06] LABS: HCT 35.6 % (40.0-50.0); HGB 11.5 g/dL (13.5-17.5); Mean Corp. HGB Concentration 32.3 g/dL (32.0-36.0); Mean Corpuscular Hemoglobin 30.3 pg (27.0-33.0); Mean Corpuscular Volume 93.9 fL (80-95); Mean Platelet Volume 8.7 fL (8.0-11.0); RBC 3.79 m/cumm (4.50-6.00); RBC Distribution Width 14.2 % (11.8-14.1); White Blood Cell Count 4.51 k/cumm (4.4-10.8)
[2020-01-12 08:12] LABS: ALT 54 U/L (16-63); AST 152 U/L (15-37); Albumin 2.6 g/dL (3.4-5.0); Alkaline Phosphatase 162 U/L (46-116); Anion Gap 3.4 mmol/L (3-11); BUN 5 mg/dL (7-18); Bilirubin, Direct 0.42 mg/dL (0.00-0.20); Bilirubin, Total 1.1 mg/dL (0.2-1.0); CO2 33.6 mmol/L (21.0-32.0); CREATININE 0.82 mg/dL (0.70-1.30); Calcium 7.6 mg/dL (8.5-10.1); Chloride 103 mmol/L (98-107); Glucose 110 mg/dL (74-106); Magnesium 2.4 mg/dL (1.8-2.4); PHOSPHORUS 1.8 mg/dL (2.6-4.7); Potassium 3.3 mmol/L (3.5-5.1); Sodium 140 mmol/L (136-145); Total Protein 5.3 g/dL (6.4-8.2)
[2020-01-12 08:20] LABS: Platelet Count 58 x1000/uL (130-400)
[2020-01-12] MEDS: LORazepam 2 MG/ML VIAL IVP ×5 (08:36→18:12)
[2020-01-12] MEDS: Potassium Chloride 20 MEQ TABCR 40 MEQ PO (10:59)
--- NOTE | 2020-01-12 11:33 | W.NUTRFU ---
Date of service: 01/12/20 Time of Service: 11:34 Nutritional Follow up NOTE: 54 year old male admitted to ICU after several days of N/V, fever with alcohol withdrawl,hypomagnesemia. Meds include thiamin, folic acid MVI. Following regular meal plan. Nursing reports he is eating. BMI indicates mild obesity. Not at risk for nutritional decline at this time. Time Spent in Nutritional Counseling and Treatment: 0 time
--- NOTE | 2020-01-12 11:55 | PHA.REVIEW ---
Pharmacy Admission Review - Admission Clinical Review (Last Reviewed 01/11/20 @ 23:57 by ELISA Aguilar) Suicidal ideation (Acute) Hypomagnesemia (Acute) Lactic acidosis (Acute) Alcohol withdrawal (Acute) buspirone [From BuSpar] Adverse Reaction (Verified 01/11/20 18:27) swollen ankles fluoxetine Adverse Reaction (Verified 01/11/20 18:27) ineffective trazodone Adverse Reaction (Verified 01/11/20 18:27) nightmares Height 5 ft 10 in Weight 94.5 kg - Renal Dosing Renal Dosing: BUN 5 mg/dL (7-18) L 01/12/20 07:45 Creatinine 0.82 mg/dL (0.70-1.30) 01/12/20 07:45 Medications needing adjustments: Reviewed (Crcl ~107 mL/min current meds okay) - Anticoagulation Anticoagulation: Hgb 11.5 g/dL (13.5-17.5) L 01/12/20 07:45 Hct 35.6 % (40.0-50.0) L 01/12/20 07:45 Plt Count 58 x1000/uL (130-400) L D 01/12/20 07:45 Creatinine 0.82 mg/dL (0.70-1.30) 01/12/20 07:45 DVT Prohphylaxis: Reviewed (enoxaparin discontinued; plts 58 this morning) Therapeutic Anticoagulation: N/A - Opiate Usage Evaluate Pain Scale/Pains Meds: N/A - Relevant Labs Sodium 140 mmol/L (136-145) 01/12/20 07:45 Potassium 3.3 mmol/L (3.5-5.1) L 01/12/20 07:45 Chloride 103 mmol/L (98-107) 01/12/20 07:45 Phosphorus 1.8 mg/dL (2.6-4.7) L 01/12/20 07:45 Magnesium 2.4 mg/dL (1.8-2.4) 01/12/20 07:45 Electrolytes, C-Reactive P, ESR: Reviewed (potassium replacement ordered) - DM Control DM Control: Glucose 110 mg/dL (74-106) H 01/12/20 07:45 Insulin Dosing: N/A - Heart Failure/TX EF%, RACHNA's, B-Blockers, Diuretics: Reviewed (metoprolol) - BP Control BP Control: Blood Pressure 115/67 Blood Pressure 128/82 Blood Pressure 125/86 Blood Pressure 136/89 Blood Pressure 129/87 Blood Pressure 104/71 Blood Pressure 128/85 If elevated: N/A - Qtc Review If Elevated: Reviewed (QTc 544 one time dose ondansetron given in ED and has hydroxyzine on home med list) - IV to PO Switch IV Medications: N/A - Home Meds Home Med List reviewed: Reviewed (Clonidine may enahce the AV-blocking effect of metoprolol; metoprolol may enhance rebound antihypertensive effect of clonidine if clonidine is abruptly withdrawn.) Relevent Home Meds Not ordered & why?: acetylcysteine, aspirin, hydroxyzine (PRN/QTc prolonged), ibuprofen (PRN), magic mouth wash - Current meds Current Medication Order Review: Intervened (discontinued DI meds, DM orders, and a duplicate order) - Comments Comments/Follow Ups: watch K+, phos, plts, and for the addition of any QT prolonging meds
[2020-01-12 15:40] LABS: COVID-19 RT-PCR UVMMC Result Negative (Negative)
--- NOTE | 2020-01-12 17:54 | W.PM.PROGNOT ---
Date of Service Date of service: 01/12/20 Time of Service: 17:54 Assessment and Plan Assessment and plan (1) Alcohol withdrawal: Status: Acute Assessment and plan: Continue IVF, increase scheduled librium, continue prn ativan per CIWA. Agree with high dose thiamine. Continue MVI. Monitor and replete lytes. Continues to require ICU. Qualifiers: Complication of substance-induced condition: uncomplicated Qualified Code(s): F10.230 - Alcohol dependence with withdrawal, uncomplicated (2) Hypertension: Status: Chronic Assessment and plan: Continue metoprolol and clonidine. Last BP is 112/79. Qualifiers: Hypertension type: essential hypertension Qualified Code(s): I10 - Essential (primary) hypertension (3) Lactic acidosis: Status: Acute Assessment and plan: No evidence of acute bacterial process. Agree that this is likely related to alcoholic liver disease. Continue IVF as dehydration component is a possibility. Recheck in am. (4) Hypomagnesemia: Status: Acute Assessment and plan: Repleted. Recheck in am. (5) Suicidal ideation: Status: Acute Assessment and plan: history of depression anxiety and suicidal ideation without plan. Some of this could be substance-induced mood disorder, but the patient should absolutely be evaluated by mental health prior to discharge. (6) Alcoholism, chronic: Status: Chronic Assessment and plan: The patient has made arrangements for an inpatient substance abuse rehab facility in [facility] upon discharge from our facility. (7) Thrombocytopenia: Status: Chronic Assessment and plan: Could be related to lovenox/HIT but also likely due to EtOH. HIT panel ordered. Lovenox d/c'ed. I ordered TEDs/SCDs for DVT ppx. Continue to monitor. (8) DVT prophylaxis: Status: Acute Assessment and plan: As above. Lovenox d/c'ed. TEDs/SCDs ordered. (9) Discharge planning issues: Status: Acute Assessment and plan: Full code Keep in ICU Subjective Subjective Interval history since last seen: CIWA scores today have been 11-13. The patient is anxious, tremulous, but mentating and not hallucinating. He was able to make his own arrangements to go to a substance abuse rehab facility in [facility] once he is done with withdrawal here. Had a headache, but denies dizziness, chest pain, shortness of breath. Good appetite. Exam Narrative Exam Narrative: General: Very pleasant middle-aged male, A&Ox3, but sometimes slow to respond to questions, and the answers do become tangential, requiring refocusing, tremulous, mildly anxious HEENT: EOMI, MMM Heart: RRR, no m/r/g Lungs: CTAB Abdomen: soft, nontender, nondistended Extremities: no e/c/c BLE's Objective Objective Clinical Data: Abnormal lab results 01/11/20 01/11/20 01/11/20 Range/Units 19:02 19:02 19:02 RBC 4.40 L (4.50-6.00) m/cumm Hgb (13.5-17.5) g/dL Hct (40.0-50.0) % RDW 14.3 H (11.8-14.1) % Plt Count 127 L (130-400) x1000/uL Potassium (3.5-5.1) mmol/L Carbon Dioxide (21.0-32.0) mmol/L Anion Gap 15.4 H (3-11) mmol/L BUN 6 L (7-18) mg/dL Glucose 134 H (74-106) mg/dL Lactate 6.4 H* (0.6-1.4) mmol/L Calcium (8.5-10.1) mg/dL Phosphorus (2.6-4.7) mg/dL Magnesium (1.8-2.4) mg/dL Total Bilirubin 1.2 H (0.2-1.0) mg/dL Conjugated Bilirubin (0.00-0.20) mg/dL AST 229 H (15-37) U/L ALT 68 H (16-63) U/L Alkaline Phosphatase 207 H (46-116) U/L Total Protein (6.4-8.2) g/dL Albumin 3.3 L (3.4-5.0) g/dL Ur Specific [place] (1.005-1.025) Urine Protein (Negative) mg/dL Urine Ketones (Negative) mg/dL Urine Blood (Negative) Urine Bilirubin (Negative) Ur THC Screen (Negative) 01/11/20 01/11/20 01/11/20 Range/Units 19:50 21:17 21:17 RBC (4.50-6.00) m/cumm Hgb (13.5-17.5) g/dL Hct (40.0-50.0) % RDW (11.8-14.1) % Plt Count (130-400) x1000/uL Potassium (3.5-5.1) mmol/L Carbon Dioxide (21.0-32.0) mmol/L Anion Gap (3-11) mmol/L BUN (7-18) mg/dL Glucose (74-106) mg/dL Lactate (0.6-1.4) mmol/L Calcium (8.5-10.1) mg/dL Phosphorus (2.6-4.7) mg/dL Magnesium 1.6 L (1.8-2.4) mg/dL Total Bilirubin (0.2-1.0) mg/dL Conjugated Bilirubin (0.00-0.20) mg/dL AST (15-37) U/L ALT (16-63) U/L Alkaline Phosphatase (46-116) U/L Total Protein (6.4-8.2) g/dL Albumin (3.4-5.0) g/dL Ur Specific [place] >= 1.030 H (1.005-1.025) Urine Protein >=300 H (Negative) mg/dL Urine Ketones Trace H (Negative) mg/dL Urine Blood Trace-lysed H (Negative) Urine Bilirubin Small H (Negative) Ur THC Screen Positive A (Negative) 01/11/20 01/12/20 01/12/20 Range/Units 22:30 07:45 07:45 RBC 3.79 L (4.50-6.00) m/cumm Hgb 11.5 L (13.5-17.5) g/dL Hct 35.6 L (40.0-50.0) % RDW 14.2 H (11.8-14.1) % Plt Count 58 L D (130-400) x1000/uL Potassium 3.3 L (3.5-5.1) mmol/L Carbon Dioxide 33.6 H (21.0-32.0) mmol/L Anion Gap (3-11) mmol/L BUN 5 L (7-18) mg/dL Glucose 110 H (74-106) mg/dL Lactate 1.6 H (0.6-1.4) mmol/L Calcium 7.6 L (8.5-10.1) mg/dL Phosphorus 1.8 L (2.6-4.7) mg/dL Magnesium (1.8-2.4) mg/dL Total Bilirubin 1.1 H (0.2-1.0) mg/dL Conjugated Bilirubin 0.42 H (0.00-0.20) mg/dL AST 152 H (15-37) U/L ALT (16-63) U/L Alkaline Phosphatase 162 H (46-116) U/L Total Protein 5.3 L (6.4-8.2) g/dL Albumin 2.6 L (3.4-5.0) g/dL Ur Specific [place] (1.005-1.025) Urine Protein (Negative) mg/dL Urine Ketones (Negative) mg/dL Urine Blood (Negative) Urine Bilirubin (Negative) Ur THC Screen (Negative) Vital Signs Temperature 36.3 C L 01/12/20 16:03 Temperature Source Temporal Artery Scan 01/12/20 16:03 Pulse 88 01/12/20 16:01 Pulse 86 01/12/20 16:01 Respiratory Rate 11 L 01/12/20 16:01 Respiratory Effort Non-Labored 01/12/20 11:34 Respiratory Depth Normal 01/12/20 11:34 Respiratory Pattern Normal 01/12/20 11:34 Blood Pressure 112/79 01/12/20 16:01 Blood Pressure Mean 86 01/12/20 16:01 Blood Pressure Position Supine 01/12/20 11:34 Pulse Oximetry 97 01/12/20 15:01 Oxygen Delivery Method Room Air 01/12/20 13:29 Oxygen Flow Rate 0 01/12/20 13:29 Pain Level 0 01/12/20 11:34 Intake & Output 01/11/20 01/12/20 01/12/20 23:59 11:59 23:59 Intake Total 101 / 101 2495 / 2795 300 / 2795 Output Total 100 / 525 425 / 525 Balance 101 / 101 2395 / 2270 -125 / 2270 Weight 90.718 kg 94.5 kg Intake: IV 101 / 101 2105 / 2105 Oral 390 / 690 300 / 690 Output: Urine 100 / 475 375 / 475 Stool 50 / 50 Other: Urine Color Light Shi Dark Shi Urine Appearance Clear Clear Urine Odor Normal Comment Mixed with liquid stool. Stool Occult Blood Negative Stool Size Small Stool Characteristics Soft Liquid Voiding Methods Bedside Commode Laboratory Results WBC 4.51 k/cumm (4.4-10.8) D 01/12/20 07:45 RBC 3.79 m/cumm (4.50-6.00) L 01/12/20 07:45 Hgb 11.5 g/dL (13.5-17.5) L 01/12/20 07:45 Hct 35.6 % (40.0-50.0) L 01/12/20 07:45 MCV 93.9 fL (80-95) 01/12/20 07:45 MCH 30.3 pg (27.0-33.0) 01/12/20 07:45 MCHC 32.3 g/dL (32.0-36.0) 01/12/20 07:45 RDW 14.2 % (11.8-14.1) H 01/12/20 07:45 Plt Count 58 x1000/uL (130-400) L D 01/12/20 07:45 MPV 8.7 fL (8.0-11.0) 01/12/20 07:45 Immature Gran % 0.4 % 01/11/20 19:02 Neutrophils % 73.0 01/11/20 19:02 Lymphocytes % 19.9 01/11/20 19:02 Monocytes % 6.4 01/11/20 19:02 Eosinophils % 0.0 01/11/20 19:02 Basophils % 0.3 01/11/20 19:02 Absolute Neutrophils 6.70 k/cumm (1.2-6.7) 01/11/20 19:02 Absolute Lymphocytes 1.83 k/cumm (1.2-3.4) 01/11/20 19:02 Absolute Monocytes 0.59 k/cumm (0.11-0.7) 01/11/20 19:02 Absolute Eosinophils 0.00 k/cumm (0.0-0.7) 01/11/20 19:02 Absolute Basophils 0.03 k/cumm (0.0-0.2) 01/11/20 19:02 Sodium 140 mmol/L (136-145) 01/12/20 07:45 Potassium 3.3 mmol/L (3.5-5.1) L 01/12/20 07:45 Chloride 103 mmol/L (98-107) 01/12/20 07:45 Carbon Dioxide 33.6 mmol/L (21.0-32.0) H 01/12/20 07:45 Anion Gap 3.4 mmol/L (3-11) 01/12/20 07:45 BUN 5 mg/dL (7-18) L 01/12/20 07:45 Creatinine 0.82 mg/dL (0.70-1.30) 01/12/20 07:45 Estimated GFR/1.73 m2 >= 60.00 (mL/min/1.73m2) 01/12/20 07:45 Glucose 110 mg/dL (74-106) H 01/12/20 07:45 Lactate 1.6 mmol/L (0.6-1.4) H 01/11/20 22:30 Calcium 7.6 mg/dL (8.5-10.1) L 01/12/20 07:45 Phosphorus 1.8 mg/dL (2.6-4.7) L 01/12/20 07:45 Magnesium 2.4 mg/dL (1.8-2.4) 01/12/20 07:45 Total Bilirubin 1.1 mg/dL (0.2-1.0) H 01/12/20 07:45 Conjugated Bilirubin 0.42 mg/dL (0.00-0.20) H 01/12/20 07:45 AST 152 U/L (15-37) H 01/12/20 07:45 ALT 54 U/L (16-63) 01/12/20 07:45 Alkaline Phosphatase 162 U/L (46-116) H 01/12/20 07:45 Total Protein 5.3 g/dL (6.4-8.2) L 01/12/20 07:45 Albumin 2.6 g/dL (3.4-5.0) L 01/12/20 07:45 Lipase 101 U/L (73-393) 01/12/20 00:00 Procalcitonin 0.1 ng/mL 01/11/20 22:30 Urine Color Shi (Yellow) 01/11/20 21:17 Urine Clarity Clear (Clear) 01/11/20 21:17 Urine pH 5.5 (5-8) 01/11/20 21:17 Ur Specific [place] >= 1.030 (1.005-1.025) H 01/11/20 21:17 Urine Protein >=300 mg/dL (Negative) H 01/11/20 21:17 Urine Ketones Trace mg/dL (Negative) H 01/11/20 21:17 Urine Blood Trace-lysed (Negative) H 01/11/20 21:17 Urine Nitrite Negative (Negative) 01/11/20 21:17 Urine Bilirubin Small (Negative) H 01/11/20 21:17 Urine Urobilinogen 0.2 EU/dL (Up TO 0.2) 01/11/20 21:17 Ur Leukocyte Esterase Negative (Negative) 01/11/20 21:17 Urine RBC Negative HPF (0-2) 01/11/20 21:17 Urine WBC 5-10 HPF (0-5) 01/11/20 21:17 Ur Epithelial Cells Few HPF (Negative) 01/11/20 21:17 Urine Crystals Few amorphous HPF (Negative) 01/11/20 21:17 Urine Bacteria Negative HPF (Negative) 01/11/20 21:17 Urine Casts 3-5 hyaline LPF (Negative) 01/11/20 21:17 Urine Mucus Moderate (Negative) 01/11/20 21:17 Urine Other Mod transitional (Negative) 01/11/20 21:17 Ur Culture Indicated? Yes 01/11/20 21:17 Urine Glucose Negative mg/dL (Negative) 01/11/20 21:17 Urine Opiates Screen Negative (Negative) 01/11/20 21:17 Urine Methadone Screen Negative (Negative) 01/11/20 21:17 Ur Barbiturates Screen Negative (Negative) 01/11/20 21:17 Ur Tricyclics Screen Negative (Negative) 01/11/20 21:17 Ur Amphetamines Screen Negative (Negative) 01/11/20 21:17 U Benzodiazepines Scrn Negative (Negative) 01/11/20 21:17 Urine Cocaine Screen Negative (Negative) 01/11/20 21:17 Ur THC Screen Positive (Negative) A 01/11/20 21:17 Ethyl Alcohol 11.1 mg/dL (<3) 01/11/20 19:02 COVID-19 PCR Negative (Negative) 01/11/20 23:35 Nasopharyn COVID-19 PCR Not Applicable 01/11/20 23:35 Ref Test Perform Site [facility] 01/11/20 23:35
[2020-01-12] MEDS: POTASSIUM CHLORIDE/0.9% NACL 1,000 ML 150 MEQ IV (18:03)
[2020-01-12] MEDS: chlordiazePOXIDE 25 MG CAP 75 MG PO (19:59)
[2020-01-12] MEDS: Melatonin 3 MG TAB 9 MG PO (22:53)
[2020-01-13] VITALS (33 sets, daily range): BP systolic 90–121; BP diastolic 53–86; PULSE 74–99; RESP 12–22; TEMP 36–36.8; O2SAT 92–100
[2020-01-13] MEDS: POTASSIUM CHLORIDE/0.9% NACL 1,000 ML 150 MEQ IV ×2 (00:20→07:08)
[2020-01-13] MEDS: LORazepam 1 MG TAB PO/SL ×3 (02:37→04:56)
[2020-01-13] MEDS: THIAMINE 500 MG in Normal Saline 100 ML 200 MG IVPB ×3 (04:56→21:32)
--- NOTE | 2020-01-13 05:17 | NUR.NOTE ---
pt was bladder scanned after 2.8kg weight gain noted. PVR were 240ml. Nursing Note:
[2020-01-13 06:51] LABS: Lactate 1.1 mmol/L (0.6-1.4)
[2020-01-13 07:06] LABS: Abs Immature Grans 0.01 k/cumm (0.0-0.09); Absolute Basophil Count 0.01 k/cumm (0.0-0.2); Absolute Eosinophil Count 0.02 k/cumm (0.0-0.7); Absolute Lymphocyte Count 1.04 k/cumm (1.2-3.4); Absolute Monocyte Count 0.18 k/cumm (0.11-0.7); Absolute Neutrophil Count 2.08 k/cumm (1.2-6.7); Basophils % 0.3; Eosinophils % 0.6; HCT 32.8 % (40.0-50.0); HGB 10.7 g/dL (13.5-17.5); Immature Grans % 0.3 %; Lymphocytes % 31.1; Mean Corp. HGB Concentration 32.6 g/dL (32.0-36.0); Mean Corpuscular Hemoglobin 30.8 pg (27.0-33.0); Mean Corpuscular Volume 94.5 fL (80-95); Mean Platelet Volume 9.6 fL (8.0-11.0); Monocytes % 5.4; Neutrophils % 62.3; RBC 3.47 m/cumm (4.50-6.00); RBC Distribution Width 13.9 % (11.8-14.1); White Blood Cell Count 3.34 k/cumm (4.4-10.8)
[2020-01-13 07:22] LABS: Anion Gap 3.6 mmol/L (3-11); CO2 28.4 mmol/L (21.0-32.0); CREATININE 0.76 mg/dL (0.70-1.30); Calcium 7.3 mg/dL (8.5-10.1); Chloride 108 mmol/L (98-107); Glucose 91 mg/dL (74-106); Magnesium 1.9 mg/dL (1.8-2.4); Potassium 3.8 mmol/L (3.5-5.1); Sodium 140 mmol/L (136-145)
[2020-01-13 07:31] LABS: Diff Comment PLT Morph Reviewed; Platelet Count 52 x1000/uL (130-400); RBC Morphology Normal
[2020-01-13 07:36] LABS: BUN 2 mg/dL (7-18)
[2020-01-13 08:13] LABS: Folate 13.3 ng/mL (8.6-20.0); Vitamin B12 344 pg/mL (193-986)
--- NOTE | 2020-01-13 08:30 | CMPROGNOTE_ITS ---
Care Management Progress Note S/O: Gilmer continues to be closely monitored in the ICU and is receiving medications as needed per [facility] protocol. CM continues to follow. A: 54 year old male admitted to [facility] 01/11/20 for Acute Alcohol Withdrawal P: Gilmer will likely be discharged home with no new services. He would likely benefit from substance use treatment; options will be reviewed. Gilmer will follow up with his PCP and discharge plan of care. CM will continue to support patient, family and discharge planning needs.
[2020-01-13] MEDS: Magnesium Oxide 400 MG TAB PO ×2 (08:58→19:56)
[2020-01-13] MEDS: Folic Acid 1 MG TAB PO (08:58)
[2020-01-13] MEDS: Rosuvastatin 10 MG TAB PO (08:58)
[2020-01-13] MEDS: chlordiazePOXIDE 25 MG CAP 75 MG PO ×3 (08:58→19:55)
[2020-01-13] MEDS: Multivitamin TAB 1 TAB PO (08:58)
[2020-01-13] MEDS: Metoprolol 25 MG TAB PO ×3 (08:58→19:57)
[2020-01-13] MEDS: cloNIDine 0.1 MG TAB PO ×3 (08:59→19:57)
[2020-01-13] MEDS: Normal Saline Flush 10 ML SYR IVP ×2 (11:22→21:32)
--- NOTE | 2020-01-13 12:33 | PGE_ITS ---
Date of Service Date of service: 01/13/20 Time of Service: 12:33 Assessment and Plan Assessment and plan (1) Alcohol withdrawal: Status: Acute Assessment and plan: IV fluids have been discontinued. We will continue with supplemental multivitamin and thiamine and folic acid along with program doses of Librium but at a reduced frequency of 75 mg 3 times daily. If he continues to improve I will decrease his dose to 50 mg 3 times daily tomorrow and taper it further from there. Continue to use supplemental Ativan as needed for high CIWA scores. Anticipate he will need to be hospitalized for another 48 hours. Qualifiers: Complication of substance-induced condition: uncomplicated Qualified Code(s): F10.230 - Alcohol dependence with withdrawal, uncomplicated (2) Hypertension: Status: Chronic Assessment and plan: Continue his home dose of metoprolol and clonidine. I do not agree with this combination of beta-kirby and alpha kirby together but he has been taking both routinely and the alpha-kirby should not be acutely withdrawn to the risk of inducing a hypertensive crisis. Qualifiers: Hypertension type: essential hypertension Qualified Code(s): I10 - Essential (primary) hypertension (3) Suicidal ideation: Status: Acute Assessment and plan: Patient is not currently exhibiting any suicidal thoughts. Nevertheless I will ask mental health to evaluate him prior to discharge. (4) Alcoholism, chronic: Status: Chronic Assessment and plan: Patient states his been through multiple inpatient treatment programs for his alcoholism most recently at [place] about a month ago which he said was was not a good experience. Prior to this he had been in inpatient treatment programs in [place]. He most recently had followed up in but says he fell off the [facility] during the [place] [facility] orders for COVID- 19. Upon discharge she needs to be set up with an outpatient alcohol treatment program Subjective Subjective Interval history since last seen: Patient continues to improve. He is a little bit lethargic this morning but awakens easily sitting up in his chair eating his breakfast. He has no acute complaints. His CIWA scores between 3 and 7. He remains on Librium at 75 mg 4 times daily. I am going to reduce the dose to 75 mg 3 times daily and continue to taper from there. Did require 4 separate doses of as needed Ativan since last night. Last dose of supplemental Ativan was 2 mg orally at 4:56 AM this morning. He will continue to be monitored while he taper his Librium. He will probably continue to need to be monitored and treated as an acute inpatient for at least another 48 hours. Exam Narrative Exam Narrative: Middle-age male sitting up in his chair eating his breakfast watching TV. He is alert. He is oriented to person place including the name of the hospital as well as the location of hospital as well as to the month and the year although he did not get the date of the month correct. Lungs are clear to auscultation Heart is regular rate and rhythm. Abdomen soft obese nontender. Neurologic exam he is alert and oriented and answering questions appropriately. He is not exhibiting any auditory or visual hallucinations. He showing no tremulousness while he is feeding himself. Objective Objective Clinical Data: Abnormal lab results 01/13/20 01/13/20 Range/Units 06:40 06:40 WBC 3.34 L (4.4-10.8) k/cumm RBC 3.47 L (4.50-6.00) m/cumm Hgb 10.7 L (13.5-17.5) g/dL Hct 32.8 L (40.0-50.0) % Plt Count 52 L (130-400) x1000/uL Absolute Lymphocytes 1.04 L (1.2-3.4) k/cumm Chloride 108 H (98-107) mmol/L BUN 2 L (7-18) mg/dL Calcium 7.3 L (8.5-10.1) mg/dL Vital Signs Temperature 36.5 C 01/13/20 09:31 Temperature Source Temporal Artery Scan 01/13/20 09:31 Pulse 80 01/13/20 09:54 Pulse 87 01/13/20 10:00 Respiratory Rate 16 01/13/20 10:00 Respiratory Effort Non-Labored 01/13/20 09:31 Respiratory Depth Normal 01/13/20 09:31 Respiratory Pattern Normal 01/13/20 09:31 Blood Pressure 107/55 L 01/13/20 09:54 Blood Pressure Mean 66 01/13/20 09:54 Blood Pressure Position Supine 01/12/20 16:03 Pulse Oximetry 95 01/13/20 03:54 Oxygen Delivery Method Room Air 01/13/20 09:31 Oxygen Flow Rate 0 01/13/20 09:31 Pain Level 0 01/13/20 09:31 Intake & Output 01/12/20 01/13/20 01/13/20 23:59 11:59 23:59 Intake Total 1522.5 / 4017.5 2247.5 / 2247.5 Output Total 675 / 775 850 / 850 Balance 847.5 / 3242.5 1397.5 / 1397.5 Weight 97.3 kg Intake: IV 982.5 / 3087.5 2047.5 / 2047.5 Oral 540 / 930 200 / 200 Output: Urine 625 / 725 850 / 850 Stool 50 / 50 Other: Urine Color Dark Shi Yellow Urine Appearance Clear Clear Urine Odor None None Comment mixed with stool Incontinent of urine saturated margarita gown. Stool Size Small Smear Stool Characteristics Soft Formed Voiding Methods Bedside Commode Incontinent Laboratory Results WBC 3.34 k/cumm (4.4-10.8) L 01/13/20 06:40 RBC 3.47 m/cumm (4.50-6.00) L 01/13/20 06:40 Hgb 10.7 g/dL (13.5-17.5) L 01/13/20 06:40 Hct 32.8 % (40.0-50.0) L 01/13/20 06:40 MCV 94.5 fL (80-95) 01/13/20 06:40 MCH 30.8 pg (27.0-33.0) 01/13/20 06:40 MCHC 32.6 g/dL (32.0-36.0) 01/13/20 06:40 RDW 13.9 % (11.8-14.1) 01/13/20 06:40 Plt Count 52 x1000/uL (130-400) L 01/13/20 06:40 MPV 9.6 fL (8.0-11.0) 01/13/20 06:40 Immature Gran % 0.3 % 01/13/20 06:40 Neutrophils % 62.3 01/13/20 06:40 Lymphocytes % 31.1 01/13/20 06:40 Monocytes % 5.4 01/13/20 06:40 Eosinophils % 0.6 01/13/20 06:40 Basophils % 0.3 01/13/20 06:40 Absolute Neutrophils 2.08 k/cumm (1.2-6.7) 01/13/20 06:40 Absolute Lymphocytes 1.04 k/cumm (1.2-3.4) L 01/13/20 06:40 Absolute Monocytes 0.18 k/cumm (0.11-0.7) 01/13/20 06:40 Absolute Eosinophils 0.02 k/cumm (0.0-0.7) 01/13/20 06:40 Absolute Basophils 0.01 k/cumm (0.0-0.2) 01/13/20 06:40 Differential Comment Plt morph reviewed 01/13/20 06:40 RBC Morphology Normal 01/13/20 06:40 Sodium 140 mmol/L (136-145) 01/13/20 06:40 Potassium 3.8 mmol/L (3.5-5.1) 01/13/20 06:40 Chloride 108 mmol/L (98-107) H 01/13/20 06:40 Carbon Dioxide 28.4 mmol/L (21.0-32.0) 01/13/20 06:40 Anion Gap 3.6 mmol/L (3-11) 01/13/20 06:40 BUN 2 mg/dL (7-18) L 01/13/20 06:40 Creatinine 0.76 mg/dL (0.70-1.30) 01/13/20 06:40 Estimated GFR/1.73 m2 >= 60.00 (mL/min/1.73m2) 01/13/20 06:40 Glucose 91 mg/dL (74-106) 01/13/20 06:40 Lactate 1.1 mmol/L (0.6-1.4) 01/13/20 06:40 Calcium 7.3 mg/dL (8.5-10.1) L 01/13/20 06:40 Phosphorus 1.8 mg/dL (2.6-4.7) L 01/12/20 07:45 Magnesium 1.9 mg/dL (1.8-2.4) 01/13/20 06:40 Total Bilirubin 1.1 mg/dL (0.2-1.0) H 01/12/20 07:45 Conjugated Bilirubin 0.42 mg/dL (0.00-0.20) H 01/12/20 07:45 AST 152 U/L (15-37) H 01/12/20 07:45 ALT 54 U/L (16-63) 01/12/20 07:45 Alkaline Phosphatase 162 U/L (46-116) H 01/12/20 07:45 Total Protein 5.3 g/dL (6.4-8.2) L 01/12/20 07:45 Albumin 2.6 g/dL (3.4-5.0) L 01/12/20 07:45 Lipase 101 U/L (73-393) 01/12/20 00:00 Vitamin B12 344 pg/mL (193-986) 01/13/20 06:40 Folate 13.3 ng/mL (8.6-20.0) 01/13/20 06:40 Procalcitonin 0.1 ng/mL 01/11/20 22:30 Urine Color Shi (Yellow) 01/11/20 21:17 Urine Clarity Clear (Clear) 01/11/20 21:17 Urine pH 5.5 (5-8) 01/11/20 21:17 Ur Specific [place] >= 1.030 (1.005-1.025) H 01/11/20 21:17 Urine Protein >=300 mg/dL (Negative) H 01/11/20 21:17 Urine Ketones Trace mg/dL (Negative) H 01/11/20 21:17 Urine Blood Trace-lysed (Negative) H 01/11/20 21:17 Urine Nitrite Negative (Negative) 01/11/20 21:17 Urine Bilirubin Small (Negative) H 01/11/20 21:17 Urine Urobilinogen 0.2 EU/dL (Up TO 0.2) 01/11/20 21:17 Ur Leukocyte Esterase Negative (Negative) 01/11/20 21:17 Urine RBC Negative HPF (0-2) 01/11/20 21:17 Urine WBC 5-10 HPF (0-5) 01/11/20 21:17 Ur Epithelial Cells Few HPF (Negative) 01/11/20 21:17 Urine Crystals Few amorphous HPF (Negative) 01/11/20 21:17 Urine Bacteria Negative HPF (Negative) 01/11/20 21:17 Urine Casts 3-5 hyaline LPF (Negative) 01/11/20 21:17 Urine Mucus Moderate (Negative) 01/11/20 21:17 Urine Other Mod transitional (Negative) 01/11/20 21:17 Ur Culture Indicated? Yes 01/11/20 21:17 Urine Glucose Negative mg/dL (Negative) 01/11/20 21:17 Urine Opiates Screen Negative (Negative) 01/11/20 21:17 Urine Methadone Screen Negative (Negative) 01/11/20 21:17 Ur Barbiturates Screen Negative (Negative) 01/11/20 21:17 Ur Tricyclics Screen Negative (Negative) 01/11/20 21:17 Ur Amphetamines Screen Negative (Negative) 01/11/20 21:17 U Benzodiazepines Scrn Negative (Negative) 01/11/20 21:17 Urine Cocaine Screen Negative (Negative) 01/11/20 21:17 Ur THC Screen Positive (Negative) A 01/11/20 21:17 Ethyl Alcohol 11.1 mg/dL (<3) 01/11/20 19:02 COVID-19 PCR Negative (Negative) 01/11/20 23:35 Nasopharyn COVID-19 PCR Not Applicable 01/11/20 23:35 Ref Test Perform Site [facility] 01/11/20 23:35
[2020-01-13] MEDS: Melatonin 3 MG TAB 9 MG PO (21:38)
[2020-01-14] VITALS (10 sets, daily range): BP systolic 112–136; BP diastolic 73–84; PULSE 72–91; RESP 11–18; TEMP 36.5–36.8; O2SAT 97–100
[2020-01-14] MEDS: LORazepam 1 MG TAB PO/SL (01:48)
[2020-01-14 06:54] LABS: Abs Immature Grans 0.01 k/cumm (0.0-0.09); Absolute Basophil Count 0.01 k/cumm (0.0-0.2); Absolute Eosinophil Count 0.05 k/cumm (0.0-0.7); Absolute Neutrophil Count 1.99 k/cumm (1.2-6.7); Basophils % 0.3; Eosinophils % 1.5; HCT 33.1 % (40.0-50.0); HGB 10.6 g/dL (13.5-17.5); Immature Grans % 0.3 %; Lymphocytes % 32.7; Mean Corpuscular Hemoglobin 30.1 pg (27.0-33.0); Mean Platelet Volume 9.1 fL (8.0-11.0); Neutrophils % 59.2; RBC 3.52 m/cumm (4.50-6.00); RBC Distribution Width 13.7 % (11.8-14.1); White Blood Cell Count 3.36 k/cumm (4.4-10.8)
[2020-01-14 07:18] LABS: Anion Gap 4.2 mmol/L (3-11); BUN 2 mg/dL (7-18); CO2 28.8 mmol/L (21.0-32.0); CREATININE 0.71 mg/dL (0.70-1.30); Calcium 7.9 mg/dL (8.5-10.1); Chloride 108 mmol/L (98-107); Glucose 92 mg/dL (74-106); Potassium 3.8 mmol/L (3.5-5.1); Sodium 141 mmol/L (136-145)
[2020-01-14 07:22] LABS: Diff Comment PLT Morph Reviewed; Platelet Count 51 x1000/uL (130-400); Polychromasia Present
[2020-01-14] MEDS: Rosuvastatin 10 MG TAB PO (08:05)
[2020-01-14] MEDS: cloNIDine 0.1 MG TAB PO (08:06)
[2020-01-14] MEDS: Folic Acid 1 MG TAB PO (08:06)
[2020-01-14] MEDS: THIAMINE 500 MG in Normal Saline 100 ML 200 MG IVPB ×2 (08:06→14:22)
[2020-01-14] MEDS: Metoprolol 25 MG TAB PO ×2 (08:06→14:22)
[2020-01-14] MEDS: Multivitamin TAB 1 TAB PO (08:06)
[2020-01-14] MEDS: chlordiazePOXIDE 25 MG CAP 75 MG PO (08:06)
[2020-01-14] MEDS: Magnesium Oxide 400 MG TAB PO (08:06)
--- NOTE | 2020-01-14 08:16 | W.PM.PROGNOT ---
Date of Service Date of service: 01/14/20 Time of Service: 08:16 Assessment and Plan Assessment and plan (1) Alcohol withdrawal: Status: Acute Assessment and plan: Continue Librium at a reduced dose of 50 mg p.o. 3 times daily and continue as needed Ativan as per CIWA scoring. Continue high-dose thiamine along with folic acid and multivitamin. Transfer to medical/surgical floor Qualifiers: Complication of substance-induced condition: uncomplicated Qualified Code(s): F10.230 - Alcohol dependence with withdrawal, uncomplicated (2) Hypertension: Status: Chronic Assessment and plan: Continue his home dose of metoprolol and clonidine. I do not agree with this combination of beta-kirby and alpha kirby together but he has been taking both routinely and the alpha-kirby should not be acutely withdrawn to the risk of inducing a hypertensive crisis. Therefore I am going to wean the clonidine but not discontinued altogether. Qualifiers: Hypertension type: essential hypertension Qualified Code(s): I10 - Essential (primary) hypertension (3) Suicidal ideation: Status: Acute Assessment and plan: Patient is not currently exhibiting any suicidal thoughts. Nevertheless I will ask mental health to evaluate him prior to discharge. He says he has been tried on multiple medications for anxiety and depression in the past. He indicated that his sister is on duloxetine and he is interested in trying this. (4) Alcoholism, chronic: Status: Chronic Assessment and plan: Patient states his been through multiple inpatient treatment programs for his alcoholism most recently at [facility] about a month ago which he said was was not a good experience. Prior to this he had been in inpatient treatment programs in [place]. He most recently had followed up in but says he fell off the [facility] during the retirement in place orders for COVID-19. Upon discharge she needs to be set up with an outpatient alcohol treatment program Subjective Subjective Interval history since last seen: Patient continues to improve with regard to his alcohol withdrawal. This morning his CIWA score is 3 he sitting up in the chair eating his breakfast and is alert and oriented person place time and circumstance. Still has some tremors that is noticeable when he eats. His high CIWA score was 8 last night and did require supplemental Ativan however he has had no seizures and no hallucinations. He currently remains on Librium 75 mg p.o. 3 times daily. I am going to decrease this down to 50 mg 3 times daily. He has had no seizures. At this time I think he is stable enough to be transferred to the medical/surgical floor. He has some concerns that the clonidine is not helping with his anxiety which is what he thought he was put on the clonidine for. However because he is on clonidine and metoprolol together he cannot just suddenly stop the clonidine without having a hypertensive crisis. I will wean down the clonidine but not discontinue it. Exam Narrative Exam Narrative: Middle-age male alert and oriented person place time circumstance. Lungs are clear to auscultation. Heart is regular rate and rhythm Abdomen soft and nontender. Neurologic exam he is alert and oriented person place time circumstance he has a noticeable tremor which looks a little more pronounced this morning than yesterday. Objective Objective Clinical Data: Abnormal lab results 01/14/20 01/14/20 Range/Units 05:58 05:58 WBC 3.36 L (4.4-10.8) k/cumm RBC 3.52 L (4.50-6.00) m/cumm Hgb 10.6 L (13.5-17.5) g/dL Hct 33.1 L (40.0-50.0) % Plt Count 51 L (130-400) x1000/uL Absolute Lymphocytes 1.10 L (1.2-3.4) k/cumm Chloride 108 H (98-107) mmol/L BUN 2 L (7-18) mg/dL Calcium 7.9 L (8.5-10.1) mg/dL Vital Signs Temperature 36.8 C 01/14/20 04:01 Temperature Source Tympanic 01/13/20 23:05 Pulse 73 01/14/20 07:34 Pulse 73 01/14/20 07:34 Respiratory Rate 14 01/14/20 07:34 Respiratory Effort 01/14/20 04:01 Respiratory Depth Normal 01/14/20 04:01 Respiratory Pattern Normal 01/14/20 04:01 Blood Pressure 131/78 01/14/20 07:34 Blood Pressure Mean 89 01/14/20 07:34 Blood Pressure Position Supine 01/12/20 16:03 Pulse Oximetry 98 01/14/20 07:34 Oxygen Delivery Method Room Air 01/14/20 04:01 Oxygen Flow Rate 0 01/14/20 04:01 Pain Level 0 01/13/20 20:09 Intake & Output 01/13/20 01/13/20 01/14/20 11:59 23:59 11:59 Intake Total 2247.5 / 3937.5 1690 / 3937.5 Output Total 850 / 2425 1575 / 2425 700 / 700 Balance 1397.5 / 1512.5 115 / 1512.5 -700 / -700 Weight 97.3 kg 97.5 kg Intake: IV 2047.5 / 3257.5 1210 / 3257.5 Oral 200 / 680 480 / 680 Output: Urine 850 / 2425 1575 / 2425 700 / 700 Other: Urine Color Yellow Pale Pale Yellow Yellow Urine Appearance Clear Clear Clear Urine Odor None Normal Comment Incontinent of urine saturated margarita gown. voiding in commode; voiding in commode; Stool Occult Blood Negative Stool Size Smear Large Stool Characteristics Soft Brown Voiding Methods Incontinent Bedside Commode Bedside Commode Laboratory Results WBC 3.36 k/cumm (4.4-10.8) L 01/14/20 05:58 RBC 3.52 m/cumm (4.50-6.00) L 01/14/20 05:58 Hgb 10.6 g/dL (13.5-17.5) L 01/14/20 05:58 Hct 33.1 % (40.0-50.0) L 01/14/20 05:58 MCV 94.0 fL (80-95) 01/14/20 05:58 MCH 30.1 pg (27.0-33.0) 01/14/20 05:58 MCHC 32.0 g/dL (32.0-36.0) 01/14/20 05:58 RDW 13.7 % (11.8-14.1) 01/14/20 05:58 Plt Count 51 x1000/uL (130-400) L 01/14/20 05:58 MPV 9.1 fL (8.0-11.0) 01/14/20 05:58 Immature Gran % 0.3 % 01/14/20 05:58 Neutrophils % 59.2 01/14/20 05:58 Lymphocytes % 32.7 01/14/20 05:58 Monocytes % 6.0 01/14/20 05:58 Eosinophils % 1.5 01/14/20 05:58 Basophils % 0.3 01/14/20 05:58 Absolute Neutrophils 1.99 k/cumm (1.2-6.7) 01/14/20 05:58 Absolute Lymphocytes 1.10 k/cumm (1.2-3.4) L 01/14/20 05:58 Absolute Monocytes 0.20 k/cumm (0.11-0.7) 01/14/20 05:58 Absolute Eosinophils 0.05 k/cumm (0.0-0.7) 01/14/20 05:58 Absolute Basophils 0.01 k/cumm (0.0-0.2) 01/14/20 05:58 Differential Comment Plt morph reviewed 01/14/20 05:58 RBC Morphology See below 01/14/20 05:58 Polychromasia Present 01/14/20 05:58 Sodium 141 mmol/L (136-145) 01/14/20 05:58 Potassium 3.8 mmol/L (3.5-5.1) 01/14/20 05:58 Chloride 108 mmol/L (98-107) H 01/14/20 05:58 Carbon Dioxide 28.8 mmol/L (21.0-32.0) 01/14/20 05:58 Anion Gap 4.2 mmol/L (3-11) 01/14/20 05:58 BUN 2 mg/dL (7-18) L 01/14/20 05:58 Creatinine 0.71 mg/dL (0.70-1.30) 01/14/20 05:58 Estimated GFR/1.73 m2 >= 60.00 (mL/min/1.73m2) 01/14/20 05:58 Glucose 92 mg/dL (74-106) 01/14/20 05:58 Lactate 1.1 mmol/L (0.6-1.4) 01/13/20 06:40 Calcium 7.9 mg/dL (8.5-10.1) L 01/14/20 05:58 Phosphorus 1.8 mg/dL (2.6-4.7) L 01/12/20 07:45 Magnesium 1.9 mg/dL (1.8-2.4) 01/13/20 06:40 Total Bilirubin 1.1 mg/dL (0.2-1.0) H 01/12/20 07:45 Conjugated Bilirubin 0.42 mg/dL (0.00-0.20) H 01/12/20 07:45 AST 152 U/L (15-37) H 01/12/20 07:45 ALT 54 U/L (16-63) 01/12/20 07:45 Alkaline Phosphatase 162 U/L (46-116) H 01/12/20 07:45 Total Protein 5.3 g/dL (6.4-8.2) L 01/12/20 07:45 Albumin 2.6 g/dL (3.4-5.0) L 01/12/20 07:45 Lipase 101 U/L (73-393) 01/12/20 00:00 Vitamin B12 344 pg/mL (193-986) 01/13/20 06:40 Folate 13.3 ng/mL (8.6-20.0) 01/13/20 06:40 Procalcitonin 0.1 ng/mL 01/11/20 22:30 Urine Color Shi (Yellow) 01/11/20 21:17 Urine Clarity Clear (Clear) 01/11/20 21:17 Urine pH 5.5 (5-8) 01/11/20 21:17 Ur Specific Marshall >= 1.030 (1.005-1.025) H 01/11/20 21:17 Urine Protein >=300 mg/dL (Negative) H 01/11/20 21:17 Urine Ketones Trace mg/dL (Negative) H 01/11/20 21:17 Urine Blood Trace-lysed (Negative) H 01/11/20 21:17 Urine Nitrite Negative (Negative) 01/11/20 21:17 Urine Bilirubin Small (Negative) H 01/11/20 21:17 Urine Urobilinogen 0.2 EU/dL (Up TO 0.2) 01/11/20 21:17 Ur Leukocyte Esterase Negative (Negative) 01/11/20 21:17 Urine RBC Negative HPF (0-2) 01/11/20 21:17 Urine WBC 5-10 HPF (0-5) 01/11/20 21:17 Ur Epithelial Cells Few HPF (Negative) 01/11/20 21:17 Urine Crystals Few amorphous HPF (Negative) 01/11/20 21:17 Urine Bacteria Negative HPF (Negative) 01/11/20 21:17 Urine Casts 3-5 hyaline LPF (Negative) 01/11/20 21:17 Urine Mucus Moderate (Negative) 01/11/20 21:17 Urine Other Mod transitional (Negative) 01/11/20 21:17 Ur Culture Indicated? Yes 01/11/20 21:17 Urine Glucose Negative mg/dL (Negative) 01/11/20 21:17 Urine Opiates Screen Negative (Negative) 01/11/20 21:17 Urine Methadone Screen Negative (Negative) 01/11/20 21:17 Ur Barbiturates Screen Negative (Negative) 01/11/20 21:17 Ur Tricyclics Screen Negative (Negative) 01/11/20 21:17 Ur Amphetamines Screen Negative (Negative) 01/11/20 21:17 U Benzodiazepines Scrn Negative (Negative) 01/11/20 21:17 Urine Cocaine Screen Negative (Negative) 01/11/20 21:17 Ur THC Screen Positive (Negative) A 01/11/20 21:17 Ethyl Alcohol 11.1 mg/dL (<3) 01/11/20 19:02 COVID-19 PCR Negative (Negative) 01/11/20 23:35 Nasopharyn COVID-19 PCR Not Applicable 01/11/20 23:35 Ref Test Perform Site [facility] 01/11/20 23:35
[2020-01-14] MEDS: DULoxetine 30 MG CAP PO (09:03)
[2020-01-14] MEDS: chlordiazePOXIDE 25 MG CAP 50 MG PO (14:21)
[2020-01-14] MEDS: Normal Saline Flush 10 ML SYR IVP (14:22)
--- NOTE | 2020-01-14 18:11 | NUR.NOTE ---
pt insisted on leaving AMA because of fear of missing daughters graduation. Care management was informed. Nursing gave pt education on medication changes and the importance of following up with primary care provider EMELINA. Pt signed AMA papers. 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 Nursing Note:
--- NOTE | 2020-01-14 18:17 | PDOC.CMPRO ---
Care Management Progress Note S/O: Gilmer was sitting up in his chair when CM met with him. He was pleasant in interaction and forthcoming with information. 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 His son is twenty and his daughter is 18 and graduating from highschool tomorrow. Gilmer has reviewed rehab options and has found a place in [place] he would like to attend. He reviews and extensive trauma history, treatment history and medication adjustment history with this technical writer and editor. He explains he would like to find the right little pill to manage his anxiety and PTSD without alcohol. He reports drinking around five drinks a night just to take the edge off from his anxiety. He shares that alcohol is a self-medicating way of managing his mental health. He verbalized understanding that this explanation is a form of alcoholism; justifying his use and feeling he has it under control. Gilmer has a plan to rent his home starting February 13. He is moving to his sister's home in [place]. He states his sister is sober. He reports anticipating going to rehab first and then to his sisters after he has completed the 12 steps. He is agreeable to connecting with a assistant baseball coach as well to help his plan. Dr. Hawk plans on trialling a new medication with Gilmer who will then follow up with his PCP. His medications continue to be adjusted. CM continues to follow. A: 54 year old male admitted to [facility] 01/11/20 for Acute Alcohol Withdrawal P: Gilmer will likely be discharged home with no new services. He would likely benefit from substance use treatment; options will be reviewed. Gilmer will follow up with his PCP and discharge plan of care. CM will continue to support patient, family and discharge planning needs.
[2020-01-15 15:11] LABS: Lyme Ab w Rflx to Lyme Confirm Negative (Negative)
--- NOTE | 2020-01-15 16:40 | W.PM.DS.N ---
DS: Diagnosis Discharge Diagnosis (1) Alcohol withdrawal: Status: Acute Asessment and Plan: Patient completed treatment with Librium on a scheduled basis along with PRN Ativan. On the day that he left the hospital AGAINST MEDICAL ADVICE is CIWA scores were down to a 1. Patient declined inpatient alcohol treatment. At the time he left the hospital he was not exhibiting any suicidal ideation nor was he demonstrating any delirium related to his benzodiazepines nor do to alcohol withdrawal. (2) Hypertension: Status: Chronic Asessment and Plan: Stable and controlled at the time of discharge. Discharge blood pressure was down to 112/75. (3) Suicidal ideation: Status: Resolved Asessment and Plan: At the time of admission patient admitted to passing thoughts of suicide with no clear plan. On the day of discharge he was denying any suicidal ideation. (4) Alcoholism, chronic: Status: Chronic Asessment and Plan: Patient declined any inpatient alcohol treatment program. Hopefully he will follow-up with outpatient services. 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 Patient had quit drinking alcohol 2 days prior to admission. He had also had a 2-week history of symptoms of confusion with difficulty with collaborative planning. Upon evaluation emergency department he was found to be in acute alcohol withdrawal. He was admitted to the intensive care unit after routine laboratory work-up and chest x-ray and CT scan of his chest abdomen pelvis have been performed through the emergency department. Laboratory was remarkable for an increased anion gap of 15.4 with an elevated blood lactate of 6.4 elevated transaminases and low magnesium and potassium levels. He was treated IV fluids his electrolytes were corrected he never had any fever and his chest x-ray was unremarkable. 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 he has prior aortic valve prosthesis and prior repair of his ascending aorta. The descending aorta demonstrated a small amount of fluid around it and there has been a slight interval increase in the diameter of the descending aorta (4.0 cm compared to 3.[address] scan from 06/03/2016. Dissection extends into the left subclavian arter and brachiocephalic trunk (previously seen on prior exam). The patient was admitted to the ICU where he was put on programmed doses of librium and given prn ativan per CIWA protocol scoring. He was given iv fluids and his electrolytes were corrected. 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 He did well and his confusion cleared up. His tremors improved although were not completely resolved at the time of his leaving the hospital against medical advice. He was oriented to person/place/time and circumstances on the morning of his departure. He left the hospital against medical advice in the evening of 01/13. He had indicated on morning rounds that he had to be out of the hospital by January 14 to see his daughter graduate from high school. Blood cultures taken on admission from 01/10 came back no growth x 3 sets at 72 hours. His urine culture grew <10,000 CFU of gram positive amy which suggests this is skin contaminant. he never had a fever throughout his hospital stay. Home Meds and New Rx's Prescriptions: No Action clonidine HCl 0.1 mg tablet 0.1 mg PO TID Qty: 90 RF: 3 aspirin 81 mg tablet,delayed release (DR/EC) 81 mg PO DAILY RF: 0 thiamine HCl (vitamin B1) 100 mg tablet 100 mg PO DAILY RF: 0 rosuvastatin 10 mg tablet 10 mg PO DAILY Qty: 90 RF: 2 hydroxyzine HCl 50 mg tablet 50 mg PO TID PRNRF: 0 melatonin 10 mg tablet 10 mg PO HS RF: 0 magic mouth wash mouthwash PO RF: 0 acetylcysteine [NAC] 600 mg capsule 600 mg PO QID RF: 0 ibuprofen 200 MG capsule 2 tab PO PRN PRNRF: 0 metoprolol tartrate 25 MG tablet 25 mg PO TID RF: 0 Discharge Data Discharge Date/Time-TO BE ENTERED AT DEPARTURE: 01/14/20 18:08 DS: Summary Status at Discharge Functional status at discharge: independent ambulation Overall status at discharge: patient is back to baseline Mental Status: mental status grossly normal Speech and Movement: speech and movement normal Mood: congruent mood Affect: normal affect Time Spent with Patient providing and/or coordinating discharge services: Less than 30 minutes Exam Psych Mental Status: mental status grossly normal Speech and Movement: speech and movement normal Mood: congruent mood Affect: normal affect DS: Data Vitals/I&O Vitals and I&O: Vital Signs Temperature 36.8 C 01/14/20 16:01 Temperature Source Temporal Artery Scan 01/14/20 16:01 Pulse 73 01/14/20 16:01 Pulse Rhythm Regular 01/14/20 15:09 Pulse 83 01/14/20 09:00 Respiratory Rate 18 01/14/20 16:01 Respiratory Effort 01/14/20 15:09 Respiratory Depth Normal 01/14/20 15:09 Respiratory Pattern Normal 01/14/20 15:09 Blood Pressure 112/75 01/14/20 16:01 Blood Pressure Mean 89 01/14/20 07:34 Blood Pressure Position Supine 01/12/20 16:03 Pulse Oximetry 99 01/14/20 16:01 Oxygen Delivery Method Room Air 01/14/20 16:01 Oxygen Flow Rate 0 01/14/20 16:01 Pain Level 0 01/14/20 16:01 Intake & Output 01/14/20 01/15/20 01/15/20 23:59 11:59 23:59 Intake Total 105 / 610 Balance 105 / -90 Intake: IV 105 / 210 Data Completed and Pending Labs on day of discharge: Labs from last 24 hours 01/11/20 19:02 Lyme Disease Antibody Negative Preliminary micro results at discharge 01/11/20 22:30 Blood Culture - Preliminary Blood NO GROWTH 72 HOURS 01/11/20 19:50 Blood Culture - Preliminary Blood NO GROWTH 72 HOURS 01/11/20 19:02 Blood Culture - Preliminary Blood NO GROWTH 72 HOURS [facility] Medical History (Updated 01/15/20 @ 16:40 by Mayur Hawk) Abdominal aortic aneurysm (Acute) Alcoholism (Acute) Hypertension (Chronic) Prolonged QT interval (Acute) Right bundle branch block (Acute) Right shoulder pain (Acute) Tick-borne disease (Acute) Surgical History (Updated 01/12/20 @ 01:28 by Mayur Hawk) H/O hand surgery (Acute) Left, Ring Finger Tendon Injury Repair S/P aortic dissection repair (Acute) with bovine aortic valve replacement Social History Smoking/Tobacco Use Status: Former Tobacco Use Smokeless tobacco user: chewing tobacco Alcohol Intake: current Alcohol Intake frequency: 3 or more drinks per day Drug use: Occasionally Substance use type: does not use and marijuana Household members: children Housing: house Number of Children: 2 Communication Needs: Corrective Lenses current occupation: Teacher Pets and animals: No What type of physical activity do you participate in: none Duration: 15-30 minutes/day Frequency: 5-6 times per week Seatbelt use: always Drive intox or ride w/intox commercial trailer truck driver: No Working smoke detector in home: Yes Do you feel safe at home: Yes Do you feel safe in your relationship?: Yes
[2020-01-15 21:27] LABS: Anaplasma phagocytophilum Negative (Negative); B. miyamotoi PCR Negative (Negative); Babesia divergens/MO-1 Negative (Negative); Babesia duncani Negative (Negative); Babesia microti Negative (Negative); Ehrlichia chaffeensis Negative (Negative); Ehrlichia ewingii/canis Negative (Negative); Ehrlichia muris eauclairensis Negative (Negative)
[2020-01-22 11:40] LABS: HIT ELISA 0.294 OD (<0.400)
[2020-01-22 11:41] LABS: HIT Interpretation Negative (Negative)
[2020-01-22 11:42] LABS: HIT Comment See Comments
== END 2020-01-14 18:08 | disposition left against medical advice (07) | DRG 894 ==
LOC: ER 23:11 → ICU 01-12 02:19 → MS 01-15 12:35
PROVIDERS: Internal Medicine; Admitting Provider Internal Medicine; Emergency Provider Physician Assistant; PCP Student in an Organized Health Care Education/Training Program; Visit Provider Internal Medicine
DX: F10.230 Alcohol dependence with withdrawal, uncomplicated (principal); E87.2 Acidosis; R45.851 Suicidal ideations; Z53.29 Procedure and treatment not carried out because of patient's decision for other reasons; I10 Essential (primary) hypertension; E83.42 Hypomagnesemia; D69.6 Thrombocytopenia, unspecified; F41.9 Anxiety disorder, unspecified
CPT/HCPCS: 36415; 36416; 74177; 80048; 80053; 80076; 80307; 82962; 83690; 84145; 85027; 86022; 87040; 87798; 93005; 96361; 96365; 96375; 96376; 99223; 99232; 99233; 99291; J1650; NC; U0003; 71045; 71260; 80320; 81003; 81015; 82607; 82746; 83605; 83735; 84100; 85025; 86618; 87086; 93010; J2060; J2405; J3475; J3490